=== PATIENT | female | born 1965 | race African-American/Black ===

== ENCOUNTER → 2020-06-19 17:19 | Outpatient (CLI) | payer OTHER, SELFPAY ==
--- NOTE | ~2020-06-19 | MM_ITS ---
EXAMINATION: MM screening esthela BI w ramsey HISTORY: Screening TECHNIQUE: Craniocaudal and mediolateral oblique 3-D tomosynthesis images were obtained and synthetic 2-D images were generated. CAD analysis was submitted and interpreted. COMPARISON: No prior mammogram is available for comparison at this institution. BREAST PARENCHYMAL COMPOSITION: There are biopsy changes in the left breast. FINDINGS: There is no evidence of suspicious mass, calcification, or architectural distortion to sugg est malignancy in either breast. There has been no suspicious interval change. IMPRESSION: 1. No mammographic evidence of malignancy. 2. Recommend routine screening mammography in one year. BI-RADS Category 1: Negative Reviewed, dictated and finalized at location A. IO TECHNICIAN
== END ==
PROVIDERS: Visit Provider Obstetrics & Gynecology
DX: Z12.31 Encounter for screening mammogram for malignant neoplasm of breast (principal)
CPT/HCPCS: 77063; 77067

== ENCOUNTER → 2021-11-27 15:24 | Outpatient (CLI) | payer OTHER, SELFPAY ==
--- NOTE | ~2021-11-27 | MM_ITS ---
EXAMINATION: MM screening esthela BI w ramsey HISTORY: Screening mammogram TECHNIQUE: Craniocaudal and mediolateral oblique 3-D tomosynthesis images were obtained and synthetic 2-D images were generated. CAD analysis was submitted and interpreted. COMPARISON: June 19, 2020 bilateral screening mammogram BREAST PARENCHYMAL COMPOSITION: FINDINGS: Biopsy marker on the left; history of prior benign left breast biopsy. There is no evidence of suspicious mass, calcification, or architectural distortion to suggest malignancy in either breas t. There has been no suspicious interval change. IMPRESSION: 1. No mammographic evidence of malignancy. 2. Recommend routine screening mammography in one year. BI-RADS Category 1: Negative Reviewed, dictated and finalized at location B.
== END ==
PROVIDERS: PCP Internal Medicine Geriatric Medicine; Visit Provider Internal Medicine Geriatric Medicine
DX: Z12.31 Encounter for screening mammogram for malignant neoplasm of breast (principal)
CPT/HCPCS: 77063; 77067

== ENCOUNTER → 2022-12-03 12:55 | Outpatient (CLI) | payer OTHER, SELFPAY ==
--- NOTE | ~2022-12-03 | DEXA_ITS ---
Bone Density Report Name: SANDEE PANDEY Age: 57 Sex: Female Ethnicity: Black Date of : 1965 Indication: hyperparathyroidism; hysterectomy; postmenopausal Referring Provider: LocoBarbara Study: Bone densitometry was performed. Exam Date: December 03, 2022 Accession number: [id number] Bone Density: Region BMD T-score Z-score Classification AP Spine (L1, L2, L3) 1.152 1.2 1.8 Normal Femoral Neck (Left) 0.837 -0.1 0.2 Normal Total Hip (Left) 1.041 0.8 0.8 Normal Femoral Neck (Right) 0.938 0.8 0.9 Normal Total Hip (Right) 0.901 -0.3 -0.1 Normal Total Hip Mean 0.971 0.3 0.4 Normal World Health Organization criteria for BMD impression classify patients as: Normal (T-score at or above -1.0), Osteopenia (T-score between -1.0 and -2.5), or Osteoporosis (T-score at or below -2.5). 10-year Fracture Risk: FRAX not reported because: All T-scores for Spine Total, Hip Total, Femoral Neck at or above -1.0 Clinical Information Provided by Patient: Has used the following medications: Vitamin D Has the following medical conditions: Hyperparathyroidism, Hysterectomy Patient maximum height was 65.3 Menopause Age: 38 No regular weight bearing exercise Does not regularly consume dairy products Drinks caffeinated beverages Onset of menses at age 13 Number of children 0 Impression: The patient has normal bone mass. Discussion: BONE DENSITY IS ABOVE THE MINIMUM DESIRABLE LEVEL AT ALL SKELETAL SITES TESTED. This patient?s bone mineral density is above the minimum desirable level (T-score -1.0 or better) at all sites measured. The patient should follow a healthful lifestyle (good nutrition with adequate calcium and vitamin D, and appropriate weight-bearing exercise). Follow-Up: Consider repeating this study in 5 years or sooner if there is some new clinical indication. Reported by: JAMES on 12/03/2022 1:21:00 PM. Reviewed, dictated and finalized at location AAnita HIRSCH
--- NOTE | ~2022-12-03 | MM_ITS ---
EXAMINATION: MM screening esthela BI w ramsey HISTORY: Screening mammogram TECHNIQUE: Craniocaudal and mediolateral oblique 3-D tomosynthesis images were obtained and synthetic 2-D images were generated. Bilateral rotated lateral CC views. CAD analysis was submitted and interp reted. COMPARISON: 11/27/2021, 06/19/2020 bilateral screening mammogram examinations BREAST PARENCHYMAL COMPOSITION: The breasts are almost entirely fatty. FINDINGS: There is a biopsy marker on the left; history of prior benign left breast biopsy in 2018. T here is no evidence of suspicious mass, calcification, or architectural distortion to suggest maligna ncy in either breast. There has been no suspicious interval change. IMPRESSION: 1. No mammographic evidence of malignancy. 2. Recommend routine screening mammography in one year. BI-RADS Category 1: Negative Reviewed, dictated and finalized at location A.
== END ==
PROVIDERS: PCP Internal Medicine Geriatric Medicine; Visit Provider Internal Medicine Endocrinology, Diabetes & Metabolism
DX: Z12.31 Encounter for screening mammogram for malignant neoplasm of breast (principal); Z78.0 Asymptomatic menopausal state
CPT/HCPCS: 77063; 77067; 77080

== ENCOUNTER 2023-09-07 05:48 | Day surgery (SDC) | payer OTHER, SELFPAY ==
[2023-04-19 12:55] VITALS: BMI 36.6
[2023-08-22 11:02] VITALS: BMI 36.5
[2023-09-07 06:20] VITALS: BMI 36.4
[2023-09-07 06:21] VITALS: BP 117/70; PULSE 68; RESP 18; TEMP 36.2; O2SAT 100
[2023-09-07 06:39] LABS: Glucose Point of Care 145 mg/dl (65-105)
--- NOTE | 2023-09-07 07:14 | PM.HPGS ---
History of Present Illness History of Present Illness Consent: Risks, benefits, and alternatives have been discussed and questions answered. Patient agrees to proceed with procedure. Chief complaint: Neoplasm Screening Narrative: Brook Hawkins is a 58 year old female colonoscopy. Patient's current weight appetite and bowel movements are normal. Patient denies abdominal pain. She has had no bleeding. Family history is noncontributory. Review of Systems Review of Systems: All systems reviewed & are unremarkable except as noted in HPI and below PMFSH Past Medical History Medical History (Updated 09/07/23 @ 07:16 by John Yadav MD) Diabetes Hyperlipemia Thyroid disorder Family History Family History (Updated 04/11/23 @ 15:23 by Michael Glass ETHERNET NETWORK ARCHITECT) Grandparent Cancer Mother Diabetes mellitus Social History Social History (Updated 04/11/23 @ 15:26 by Michael Glass ETHERNET NETWORK ARCHITECT) Smoking status: Never smoker Alcohol intake: never Substance use: never Substance use type: does not use Lack of Transportation: No Lack of Food: Never True Current Housing: I Have Housing Concerned About Future Housing: No Difficulty Paying Gas/Electric Bills: No Difficulty Paying for Meds: No Currently Unemployed: No Education: High School Diploma/GED Living arrangements: with family Gender identity (if verbalized by the patient): Female Spiritual care concerns: No Meds Home Medications and Allergies Home Medications Medication Instructions Recorded Confirmed Type glimepiride 2 mg tablet 2 mg PO QAM 04/11/23 09/07/23 History levothyroxine 150 mcg capsule 150 mcg PO DAILY 04/11/23 09/07/23 History metformin 500 mg tablet 500 mg PO DAILY 04/11/23 09/07/23 History rosuvastatin 40 mg tablet 40 mg PO DAILY 04/11/23 09/07/23 History exenatide microspheres 2 mg/0.85 2 mg subcut WEEKLY 08/22/23 09/07/23 History mL subcutaneous auto-injector (ByRoojoom) Allergies Allergy/AdvReac Type Severity Reaction Status Date / Time No Known Allergies Allergy Verified 09/07/23 06:16 Vital Signs Vital Signs - 24 hr 09/07/23 06:21 Temperature 97.1 F L Pulse Rate 68 Respiratory Rate 18 Blood Pressure 117/70 Pulse Oximetry 100 Oxygen Delivery Room Air Exam Narrative: Physical exam reveals patient to be alert. Vital signs stable. HEENT exam is unremarkable. Patient is anicteric. Lungs are clear to auscultation and percussion is without murmur or extra sounds. Abdomen bowel sounds are present soft nontender with no organomegaly. Digital external rectal exam is normal. Assessment and Plan Assessment and plan (1) Encounter for screening colonoscopy: Code(s): Z12.11 - Encounter for screening for malignant neoplasm of colon Status: Acute Assessment and Plan: Patient presents today for screening colonoscopy. She appears to be at average risk for colon polyps. Further recommendations may be given after endoscopy.
--- NOTE | 2023-09-07 07:16 | WPDANESEPPF ---
Anes - Initial Pre Proc Eval Procedure: Operation Date: 09/07/23 07:30 Proposed Procedures p Screening Colonoscopy - John Yadav MD Date/Time: 09/07/23 07:16 Surgeon: John Yadav MD Pre Op Diagnosis: Neoplasm Screening Patient Data Age: 58 Gender: F Height: 1.7 m Weight: 105.5 kg Last Vital Signs Temp 36.2 C L 09/07/23 06:21 Pulse 68 09/07/23 06:21 Resp 18 09/07/23 06:21 BP 117/70 09/07/23 06:21 Pulse Ox 100 09/07/23 06:21 O2 Del Method Room Air 09/07/23 06:21 Allergies Allergy/AdvReac Type Severity Reaction Status Date / Time No Known Allergies Allergy Verified 09/07/23 06:16 Home Medications Medication Instructions Recorded Confirmed Type glimepiride 2 mg tablet 2 mg PO QAM 04/11/23 09/07/23 History levothyroxine 150 mcg capsule 150 mcg PO DAILY 04/11/23 09/07/23 History metformin 500 mg tablet 500 mg PO DAILY 04/11/23 09/07/23 History rosuvastatin 40 mg tablet 40 mg PO DAILY 04/11/23 09/07/23 History exenatide microspheres 2 mg/0.85 2 mg subcut WEEKLY 08/22/23 09/07/23 History mL subcutaneous auto-injector (Bydureon BCise) Laboratory Tests 09/07/23 06:33 POC Capillary Glucose 145 H mg/dl (65-105) Patient hx anesthesia problems: none Family hx anesthesia problems: none Results Review: All pre-operative results and documents have been reviewed as part of the pre-operative evaluation. [facility] Past Medical History Medical History Diabetes Hyperlipemia Thyroid disorder Surgical History Surgical History H/O thyroidectomy H/O: hysterectomy Family History Family History Grandparent Cancer Mother Diabetes mellitus Social History Social History Smoking status: Never smoker Alcohol intake: never Substance use: never Substance use type: does not use Lack of Transportation: No Lack of Food: Never True Current Housing: I Have Housing Concerned About Future Housing: No Difficulty Paying Gas/Electric Bills: No Difficulty Paying for Meds: No Currently Unemployed: No Education: High School Diploma/GED Living arrangements: with family Gender identity (if verbalized by the patient): Female Spiritual care concerns: No Anes - Eval Final PreProcedure Day of Procedure 09/07/23 07:16 Patient weight: obese Heart: regular rate and rhythm Lungs: clear to auscultation Airway: Mallampati scale class II Neurological: alert and oriented Last oral intake: >/= 8 hours ASA classification: III Emergent: no Anesthetic plan: proceed Anesthesia type and monitoring: general GIVS and standard monitoring Results Review: All pre-operative results and documents have been reviewed as part of the pre-operative evaluation. Informed Consent: The patient's anesthetic plan and its attendant risks and benefits were discussed with the patient/family/POA. Questions were solicited and answers provided to the satisfaction of the patient/family/POA.
[2023-09-07] MEDS: LACTATED RINGERS 1,000 ML 150 ML IV CONT (07:20)
[2023-09-07 07:43] VITALS: BP 124/60; PULSE 66; RESP 16; O2SAT 100
[2023-09-07 07:53] VITALS: BP 130/70; PULSE 64; RESP 16; O2SAT 100
[2023-09-07 08:03] VITALS: BP 150/80; PULSE 68; RESP 16; O2SAT 100
--- NOTE | 2023-09-07 08:18 | WPDANESPN ---
Anes - Prog Note Post-Op Date/Time: 09/07/23 08:18 Cardiovascular status: normal Respiratory status: normal Airway patency: baseline Mental status: baseline Post-Op hydration status: normal Vital Signs: Last Vital Signs Temp 36.2 C L 09/07/23 06:21 Pulse 68 09/07/23 08:03 Resp 16 09/07/23 08:03 BP 150/80 H 09/07/23 08:03 Pulse Ox 100 09/07/23 08:03 O2 Del Method Room Air 09/07/23 08:03 Pain Score (VAS): 0/10 I/O: Intake & Output 09/06/23 09/07/23 09/07/23 23:59 07:59 15:59 Intake Total 725 Balance 725 09/07/23 06:33 POC Capillary Glucose 145 H Patient Feedback: Patient satisfied with anesthetic care.
== END 2023-09-07 08:13 | disposition home or self-care (01) ==
PROVIDERS: PCP Family Medicine; Visit Provider Internal Medicine Gastroenterology
PROC: 0DJD8ZZ Inspection of Lower Intestinal Tract, Via Natural or Artificial Opening Endoscopic (ICD-10-PCS; CPT 45378; principal; 2023-09-07 07:30)
DX: Z12.11 Encounter for screening for malignant neoplasm of colon (principal)
CPT/HCPCS: 45378

== ENCOUNTER 2023-12-01 10:44 | Outpatient (CLI) | payer OTHER, SELFPAY ==
--- NOTE | ~2023-12-01 | US_ITS ---
Renal-Bladder ultrasound Clinical History: Chronic kidney disease Technique: Real-time sonographic imaging of the kidneys and urinary bladder was performed. Findings: The right kidney measures 9.2 cm in length and the left kidney measures 11.2 cm. There is n o hydronephrosis or renal calculus identified. Renal cortical echogenicity is within normal limits. N o renal mass lesion is identified. The urinary bladder is moderately distended at the time of this exam. No intraluminal echoes are iden tified. No abnormal wall thickening is seen. Impression: Unremarkable ultrasound of the kidneys and urinary bladder. Reviewed, dictated and finalized at location . Impression: Unremarkable ultrasound of the kidneys and urinary bladder.
== END 2023-12-01 10:45 ==
PROVIDERS: PCP Internal Medicine Nephrology; Visit Provider Internal Medicine Nephrology
DX: E11.9 Type 2 diabetes mellitus without complications (principal); N18.32 Chronic kidney disease, stage 3b
CPT/HCPCS: 76775

== ENCOUNTER 2024-03-27 14:49 | Outpatient (CLI) | payer OTHER, SELFPAY ==
--- NOTE | ~2024-03-27 | MM_ITS ---
EXAMINATION: MM screening esthela BI w ramsey HISTORY: Screening TECHNIQUE: Craniocaudal and mediolateral oblique 3-D tomosynthesis images were obtained and synthetic 2-D images were generated. CAD analysis was submitted and interpreted. COMPARISON: Comparison to multiple prior studies sequentially, with oldest reviewed study dated 06/19. BREAST PARENCHYMAL COMPOSITION: Not dense: There are scattered areas of fibroglandular density. FINDINGS: There is no evidence of suspicious mass, calcification, or architectural distortion to sugg est malignancy in either breast. There has been no suspicious interval change. IMPRESSION: 1. No mammographic evidence of malignancy. 2. Recommend routine screening mammography in one year. BI-RADS Category 1: Negative Reviewed, dictated and finalized at location B. PATIONAL THERAPY ASSIST
== END 2024-03-27 14:50 | disposition home or self-care (01) ==
LOC: MICIMG 14:50
PROVIDERS: PCP Nurse Practitioner; Visit Provider Obstetrics & Gynecology Gynecology
DX: Z12.31 Encounter for screening mammogram for malignant neoplasm of breast (principal)
CPT/HCPCS: 77063; 77067

== ENCOUNTER 2024-09-03 17:30 | Emergency (ER) | payer OTHER, SELFPAY ==
[2024-09-03] VITALS (7 sets, daily range): BP systolic 170–189; BP diastolic 86–91; PULSE 63–101; RESP 10–20; TEMP 36.5–36.6; O2SAT 99–100
--- NOTE | ~2024-09-03 | XR_ITS ---
CHEST RADIOGRAPH, PA AND LATERAL CLINICAL HISTORY: chest pain . COMPARISON: None available TECHNIQUE: PA and lateral views of the chest. FINDINGS The cardiomediastinal silhouette is unremarkable. The lungs are clear. IMPRESSION: No focal infiltrate or effusion. Reviewed, dictated and finalized at location A.
--- NOTE | 2024-09-03 17:31 | ECG_ITS ---
Test Date: 2024-09-03 17:36:14 Measurements Intervals [place] Rate: 87 P: 69 KS: 180 QRS: -36 QRSD: 114 T: 124 QT: 375 QTc: 453 Interpretive Statements SINUS RHYTHM LEFT AXIS DEVIATION [QRS AXIS < -30] LEFT VENTRICULAR HYPERTROPHY AND ST-T CHANGE [VOLTAGE CRITERIA PLUS ST/T ABNORMALITY] POSSIBLE SEPTAL MYOCARDIAL INFARCTION , PROBABLY OLD [30 ms Q WAVE IN V1/V2] PROBABLE LATERAL MYOCARDIAL INFARCTION , OF INDETERMINATE AGE [35 ms Q WAVE IN I/aVL/V5/V6] No previous ECG available for comparison Electronically Signed On 09-04-2024 14:16:28 CDT by Judy Wilkins M.D.
--- OUTSIDE RECORDS SUMMARY | 2024-09-03 17:31 | XMS_ITS | Encounter Summary ---
Demographics Address [address] [place] [address] Mobile Phone Home Phone Work Phone Email Address Preferred Language Danish Marital Status Baptism Affiliation Unknown Race Black or Karlee rican Ethnic Group Not or Lati no Author Organization [facility] Address [address] [place] [address] Phone Care Team Providers Care Contract Clerk Name Role Phone Nery Miller NP Primary Care Provider + [phone] Harsh Estes NP Primary Care Provi francesca Kendall Salinas MD Primary Care Provider [phone] Harsh Estes NP Primary Care Provi francesca Ninoska Walker MD Unavailable Lia Awad DNP Unavailable [phone] Yesenia Peters NP Primary Care Provider [phone] Kendall Salinas MD Unavailable [phone] Modesto Freed MD Primary Care Provider + Encounter Details Date Type Department Care Team (Late st Contact Info) Description 05/16/2017 Orders Only [facility] ProviderErick MD [address] [place] [address] Social History Tobacco Use Types Packs/Day Years Used Date Smoking Tobacco: Never Alcohol Use Standard Drinks/Week Comments Yes 0 (1 standard drink = 0.6 oz pur e alcohol) Comments Unknown Sex and Gender Information Value Date Recorded Sex Assigned at Not on file Legal Sex Female 10:31 AM ENVIRONMENTAL PROGRAMS MANAGER Gender Identity Not on file Sexual Orientation Not on file documented as of this encounter Plan of Treatment Not on file documented as of this encounter Procedures Procedure Name Priority Date/Time Associated Diagnosis Comments DISCHARGE LABORATORY CUMULATIVE REPORT 05/16/2017 12:00 AM ENVIRONMENTAL PROGRAMS MANAGER documented in this encounter Results * DISCHARGE LABORATORY CUMULATIVE REPORT (05/16/2017 12:00 AM ENVIRONMENTAL PROGRAMS MANAGER) Narrative 05/16/2017 12:00 AM ENVIRONMENTAL PROGRAMS MANAGER Ordered by an unspecified provider. us Historical Provider LAB BLOOD ORDERABLES Hansa l Result documented in this encounter Visit Diagnoses Not on filedocumented in this encounter Additional Health Concerns Infection Onset Date Last Indicated Resolved Time COVID19 03/01/2020 03/01/2020 03/20/2020 3:06 AM ENVIRONMENTAL PROGRAMS MANAGER COVID: Recovered Comment:Added based on recent COVID infection. 03/20/2020 03/28/2020 07/18/2020 3:05 AM C DT documented as of this encounter Care Teams Contract Clerk Relationship Specialty [place] [address] [address] PCP - General 04/15/17 10/12/17 [place] [address] [address] PCP - General Family Practice 10/13/17 12/06/18 [place] [address] [address] PCP - General 12/07/18 12/11/18 [place] [address] [address] PCP - General Family Practice 12/12/18 08/28/20 [place] [address] [place] [address] PCP - General Family Medicine 08/29/20 01/17/22 [place] [address] [place] [address] PCP - General Internal Medicine 05/11/22 [place] [address] [place] [address] Consulting Physician Endocrinology Diabetes & Metabolism 03/06/20 Lia Awad DNP [address] [place] [address] Nurse Practitioner Internal Medicine 03/07/20 05/12/20 [place] [address] [place] [address] Referring Physician Obstetrics and Gynecology 12/08/20 documented as of this encounter
--- OUTSIDE RECORDS SUMMARY | 2024-09-03 17:31 | XMS_ITS | Clinical Summary ---
Demographics Address [address] [place] [address] Home Phone Mobile Phone Email Address Preferred Language Unknown Marital Status Unknown Hinduism Affiliation Unknown Race Unknown Ethnic Group Unknown Author Organization [facility] Address [address] [place] [address] Care Team Providers Care Research Specialist Name Role Phone Unavailable Primary Care Provider Unavailabl e Social History Tobacco Use Types Packs/Day Years Used Date Smoking Tobacco: Never Assessed Comments Unknown Sex and Gender Information Value Date Recorded Sex Assigned at Not on file Legal Sex Female 12:10 PM CURING PICKLING PACKER Gender Identity Not on file Sexual Orientation Not on file Plan of Treatment Health Maintenance Due Date Last Done Comments Hepatitis C Virus (HCV) Screening 1965 TdaP Immunization 1965 Pap Smear 1984 Cervical Cancer Screening (CCS) 1993 HPV/Cotest 1993 Colonoscopy 2008 Colorectal Cancer Screening 2008 Cologuard 2013 Immunochemical Fecal Occult Blood 2013 Mammogram 2013 Zoster Immunization (1 of 2) 2013 Pneumococcal Immunization (5 0+ years) (2 of 2 - PCV) 02/03/2021 02/04/2020, 01/05/2019 Influenza Immunization (#1) 01/01/202408/2019, 01/05/2019 SARS-COV-2 Immunization ( season) 2024 Respiratory Syncytial Virus (RSV) Immunization (Adult) (1 - 1-dose 75+ series) 2038 Pneumococcal Immunization Combined Discontinued 02/04/2020, 01/05/2019 Hepatitis B Immunization Aged Out No longer eligible based on patient's age to complete this topic Meningococcal Immunization (ACWY) Aged Out No longer eligible based on patient's age to complete this topic Rotavirus Immunization Aged Out No lo nger eligible based on patient's age to complete this topic
--- OUTSIDE RECORDS SUMMARY | 2024-09-03 17:32 | XMS_ITS | Clinical Summary ---
Demographics Address [address] [place] [address] Home Phone Work Phone Preferred Language [place] Citizen Marital Status Mosque Affiliation Unknown Race Black or Karlee rican Ethnic Group Not or Lati no Author Organization [facility] Address [address] [place] [address] Care Team Providers Care Hydroelectric Systems Technician Name Role Phone Radha Davila MD Primary Care Provider [phone] Source Comments [facility],non-owned Affiliates and Associated Physician Practices is amultiple site organization consisting of ambulatory clinics and hospital sitesin [place], [place], [place] and [place]. This disclosure is being madepursuant to the Care Everywhere program and may not contain all information available regarding this patient. Last updated 18.[facility] Allergies No known active allergies Medications * Be aware that medications may not be up to date on this document. Alwaysverify current medications with the patient. Insulin Detemir (LEVEMIR SC) Inject 40 Units subcutaneously once daily Active METFORMIN HCL PO Take 1,000 mg by mouth 2 times daily Active glipiZIDE (GLUCOTROL) 10 MG tablet Take 10 mg by mouth daily before breakfast Active simvastatin (ZOCOR) 20 MG tablet Take 20 mg by mouth at bedtime Active amLODIPine (NORVASC) 10 MG tablet Take 10 mg by mouth once daily Active levothyroxine (SYNTHROID) 137 MCG tablet Take 137 mcg by mouth daily before breakfast Active HYDROcodone-ac etaminophen (NORCO) 5-325 MG tablet Take 1 Tab by mouth every 4 hours as needed for Pain 30 Tab 6 Active Active Problems Problem Noted Date Diagnosed Date Abdominal pain, generalized 07/22/2010 Social History Tobacco Use Types Packs/Day Years Used Date Smoking Tobacco: Never Alcohol Use Standard Drinks/Week Comments No 0 (1 standard drink = 0.6 oz pur e alcohol) Comments No Sex and Gender Information Value Date Recorded Sex Assigned at Not on file Legal Sex Female 5:12 AM PROCESSING ENGINEER Gender Identity Not on file Sexual Orientation Not on file Last Filed Vital Signs Vital Sign Reading Time Taken Comments Blood Pressure 135/63 04/13/2016 4:15 PM PROCESSING ENGINEER Pulse 87 04/13/2016 4:20 PM PROCESSING ENGINEER Temperature 36.1 C (97 F) 04/13/2016 4:03 PM PROCESSING ENGINEER Respiratory Rate 14 04/13/2016 4:15 PM PROCESSING ENGINEER Oxygen Saturation 96% 04/13/2016 4:20 PM PROCESSING ENGINEER Inhaled Oxygen Concentration - - Weight 114.6 kg (252 lb 9.6 oz) 04/13/2016 2:49 PM PROCESSING ENGINEER Height 165.1 cm (5' 5 ) 04/13/2016 2:49 PM PROCESSING ENGINEER Body Mass Index 42.03 04/13/2016 2:49 PM PROCESSING ENGINEER Plan of Treatment Health Maintenance Due Date Last Done Comments COLOGUARD (AGES 45-75) - COLON CA SCREENING 1965 COLON MONITORING 1965 COLONOSCOPY - COLON CA SCREENING 1963 CT COLONOGRAPHY - COLON CA SCREENING 1965 Colorectal Cancer Screening 1965 FIT - COLON CA SCREENING 1963 FLEX SIG - COLON CA SCREENING 1965 PAP SMEAR 1963 HIV SCREENING 1978 HEPATITIS C SCREENING 06/22/1981 DTAP/TDAP/TD VACCINES (1 - Tdap) 1982 PNEUMOCOCCAL VACCINE 50+ (1 of 1 - PCV) 2013 ZOSTER VACCINE (1 of 2) 2013 MAMMOGRAM 12/07/2020 12/07/2018, 0811/2018, 12/07/2017, Additional history exists Respiratory Syncytial Virus (RSV) Vaccine Pt: or over 60 yrs (1 - Risk 60-74 years 1-dose series) 2023 COVID-19 VACCINE (2023- season) 2024 10/25/2020, 09/27/2020 DEPRESSION SCREENING 05/02/2024 INFLUENZA VACCINE (Season Ended) 2024 02/04/2020, 01/05/2019, 01/30/2013 HEPATITIS B VACCINE Aged Out No longe r eligible based on patient's age to complete this topic HIB VACCINE Aged Out No longer eligi ble based on patient's age to complete this topic HPV VACCINE Aged Out No longer eligi ble based on patient's age to complete this topic MENINGOCOCCAL (Group B) VACCINE SHARED DECISION-MAKING Aged Out No longer eligible based on patient's age to complete this topic MENINGOCOCCAL GROUPS A/C/Y/W VACCINE Aged Out No longer eligible based on patient's age to complete this topic Insurance * Guarantor: Brook Hawkins Account Type Relation to Patient Date of Phone Billing Address Personal/Family Self 1965 [address] [place] [address] [facility] Care Teams Hydroelectric Systems Technician Relationship Specialty Start Date End Date Radha Davila MD PCP - General Internal Medicine 04/07/16
--- OUTSIDE RECORDS SUMMARY | 2024-09-03 17:32 | XMS_ITS | Clinical Summary ---
Demographics Address [address] [place] [address] Mobile Phone Home Phone Work Phone Email Address Preferred Language Icelandic Marital Status Synagogue Affiliation Unknown Race Black or Karlee rican Ethnic Group Not or Lati no Author Organization [facility] Address [address] [place] [address] Care Team Providers Care Camouflage Assembler Name Role Phone Ninoska Walker MD Unavailable Kendall Salinas MD Unavailable [phone] Modesto Freed MD Primary Care Provider + Allergies Active Allergy Reactions Criticality Noted Date Comments Lisinopril Cough Low 12/22/2018 Medications VITAMIN D2 50,000 unit capsule once a week Every tuesday 8 Active aspirin 81 mg chewable tablet Take 1 tablet (81 mg total) by mouth daily. 30 tablet 11 8 Active allopurinoL (ZYLOPRIM) 100 mg tablet Take 100 mg by mouth daily 1 Active insulin degludec (TRESIBA) 200 unit/mL (3 mL) pen for injection Take 20 units subcutaneous daily 10 pen 3 1 Active calcitRIOL (ROCALTROL) 0.25 mcg capsule Take 1 capsule (0.25 mcg total) by mouth daily 1 Active ezetimibe (ZETIA) 10 mg tablet TAKE 1 TABLET DAILY 90 tablet 3 1 Active telmisartan-aml odipine (TWYNSTA) 80-10 mg per tablet TAKE 1 TABLET DAILY 90 tablet 3 1 Active simvastatin (ZOCOR) 40 mg tablet Take 1 tablet (40 mg total) by mouth nightly 90 tablet 3 1 Active glipiZIDE XL (GLUCOTROL XL) 10 mg 24 hr tabletIndicatio ns:type 2 diabetes mellitus Take 1 tablet (10 mg total) by mouth daily 90 tablet 1 1 Active metFORMIN XR (GLUCOPHAGE XR) 500 mg 24 hr tablet Take 2 tablets (1,000 mg total) by mouth 2 (two) times a day 360 tablet 1 1 Active SITagliptin (JANUVIA) 25 mg tabletIndicatio ns:type 2 diabetes mellitus Take 1 tablet (25 mg total) by mouth daily 90 tablet 1 1 Active levothyroxine (SYNTHROID) 150 mcg tablet Take 1 tablet (150 mcg total) by mouth daily 90 tablet 2 Active Active Problems Problem Noted Date Diagnosed Date Trigger middle finger of right hand 09/07/2022 History of chest pain 03/13/2021 Assessment & Plan (03/13/2021 4:49 PM SIMULATION SOFTWARE ENGINEER): Last week was her 2nd ER visit in the last 1 year for chest pain. I recommended a cardiac consultation for further evaluation considering her cardiac risk factors. Treadmill stress test ordered today. Discussed warning signs of when to seek emergency care for chest pain including chest pain that does not go away, severe in nature, associated dizziness, shortness of breath or fatigue. COVID-19 03/02/2020 Overview (09/20/2020): Sequelae includes fatigue 08/2020 echo normal. Hypertension associated with diabetes 11/11/2017 Assessment & Plan (03/13/2021 4:47 PM SIMULATION SOFTWARE ENGINEER): Hypertension is improving with treatment. Continue current treatment regimen. Dietary sodium restriction. Weight loss. Continue current medications. Continue telmisartan-amlodipine 80-10 mg once daily. Blood pressure will be reassessed at the next regular appointment. Assessment & Plan (12/08/2020 9:54 AM CDT): Hypertension is improving with treatment. Continue current treatment regimen. Dietary sodium restriction. Weight loss. Continue current medications. Continue telmisartan-amlodipine 80-10 mg once daily. Blood pressure will be reassessed at the next regular appointment. Assessment & Plan (09/01/2020 1:43 PM CDT): Hypertension is improving with treatment. Continue current treatment regimen. Dietary sodium restriction. Weight loss. Continue current medications. Continue telmisartan-amlodipine 80-10 mg once daily. Blood pressure will be reassessed at the next regular appointment. Hyperlipidemia associated with type 2 diabetes chris padilla 11/11/2017 Assessment & Plan (03/13/2021 4:47 PM SIMULATION SOFTWARE ENGINEER): Has been more adherent to her statin and Zetia over the last 3 months. Discussed the importance of statins in cardiovascular prophylaxis. Recommend continuing Zetia 10 mg daily and simvastatin 40 mg nightly. Lipids well controlled 11/2020 Assessment & Plan (12/08/2020 9:55 AM CDT): Has been more adherent to her statin and Zetia over the last 3 months. Discussed the importance of statins in cardiovascular prophylaxis. Recommend continuing Zetia 10 mg daily and simvastatin 40 mg nightly. Repeat lipids today. Re-evaluate in 3 months. Assessment & Plan (09/01/2020 1:42 PM CDT): Has been non compliant with her statin. Discussed the importance of statins in cardiovascular prophylaxis. Recommend continuing Zetia 10 mg daily and simvastatin 40 mg nightly. Repeat lipids today. Re-evaluate in 3 months. Post-surgical hypothyroidism 11/11/2017 Assessment & Plan (09/01/2020 1:43 PM CDT): Currently on levothyroxine 150 mcg once daily. Repeat TSH today Obesity (BMI 30-39.9) 11/11/2017 Assessment & Plan (03/13/2021 4:47 PM SIMULATION SOFTWARE ENGINEER): -Body mass index is 34.09 kg/m . Worsening.. Improving with lifestyle modifications.For a healthy weight should have BMI between 20-24.9 kg/m2. -Discussed with patient MyPlate dietary and exercise recommendations, 30 minutes moderate activity at least 5 days per week. (150 minutes total). -Discussed risk factors associated with obesity including risk for diabetes, hypertension, hyperlipidemia, and some types of cancer. Assessment & Plan (12/08/2020 9:55 AM CDT): -Body mass index is 33.34 kg/m . Unchanged. Improving with lifestyle modifications.For a healthy weight should have BMI between 20-24.9 kg/m2. -Discussed with patient [employer]ate dietary and exercise recommendations, 30 minutes moderate activity at least 5 days per week. (150 minutes total). -Discussed risk factors associated with obesity including risk for diabetes, hypertension, hyperlipidemia, and some types of cancer. Assessment & Plan (09/01/2020 1:42 PM CDT): -Body mass index is 33.91 kg/m . Improving with lifestyle modifications.For a healthy weight should have BMI between 20-24.9 kg/m2. -Discussed with patient [employer]ate dietary and exercise recommendations, 30 minutes moderate activity at least 5 days per week. (150 minutes total). -Discussed risk factors associated with obesity including risk for diabetes, hypertension, hyperlipidemia, and some types of cancer. Diabetic polyneuropathy asso ciated with type 2 diabetes mellitus 11/11/2017 Type 2 diabetes mellitus wit h diabetic polyneuropathy, with long-term current use of insulin 11/11/2017 Assessment & Plan (12/08/2020 9:54 AM CDT): Lab Results Component Value Date HGBA1C 7.1 12/08/2020 Diabetes is improving with lifestyle modifications. Continue current treatment regimen. Reminded to bring in blood sugar diary at next visit. Dietary recommendations for ADA diet. Discussed ways to avoid symptomatic hypoglycemia. Discussed foot care. ContinueTresiba 20 units once nightly. Continue metformin 1000 mg ER daily. She is going to work on healthier dietary choices and exercise regularly. Diabetes will be reassessed in 3 months. Type 2 diabetes mellitus 09/15/2013 Overview (08/07/2016): DMII WO CMP NT ST UNCNTR Assessment & Plan (03/13/2021 4:48 PM SIMULATION SOFTWARE ENGINEER): Lab Results Component Value Date HGBA1C 8.6 (H) 02/16/2021 Diabetes is worsening. Continue current treatment regimen. Reminded to bring in blood sugar diary at next visit. Dietary recommendations for ADA diet. Discussed ways to avoid symptomatic hypoglycemia. Discussed foot care. ContinueTresiba 20 units once nightly. Continue metformin 1000 mg ER daily, glipizide 10 mg daily. Did not tolerate Ozempic in the past. Will try sitagliptin 25 mg daily increase to 50 mg daily if not improved at follow up. She is going to work on healthier dietary choices and exercise regularly. Diabetes will be reassessed in 3 months. Assessment & Plan (09/01/2020 1:45 PM CDT): Lab Results Component Value Date HGBA1C 6.5 08/29/2020 Diabetes is improving with lifestyle modifications. Continue current treatment regimen. Reminded to bring in blood sugar diary at next visit. Dietary recommendations for ADA diet. Discussed ways to avoid symptomatic hypoglycemia. Discussed foot care. Freestyle Paola ordered today. Patient is taking insulin very sporadically. Recommended taking Tresiba 20 units once nightly. Stop glipizide. Continue metformin 1000 mg ER daily. Recommended sending [employer] message with blood sugar log in 1 month. Follow up in clinic in 3 months for repeat A1C Diabetes will be reassessed in 1 month. Resolved Problems Problem Noted Date Diagnosed Date Resolved Date Acute respiratory failure with hypoxia 03/02/2020 09/01/2020 Hypertension 03/02/2020 09/01/2020 Hyperlipidemia 03/02/2020 08/29/2020 Diabetes 03/02/2020 08/29/2020 Hypothyroidism 03/02/2020 08/29/2020 Hypertriglyceridemia 11/11/2017 021 Nausea 11/11/2017 08/29/2020 Hypertension 09/15/2013 11/11/2017 Overview (08/06/2016): HYPERTENSION NOS Hyperlipidemia 09/15/2013 11/11/2017 Overview (08/07/2016): HYPERLIPIDEMIA NEC/NOS Abdominal pain, generalized 07/22/2010 11/11/2017 Immunizations Immunization Administration Dates Next Due Hep A, Adult 12/20/2003 Influenza, Quadrivalent, Rec ombinant, Egg Free, Preservative Free, Intramuscular 02/04/2020,01/05/2019 Influenza, Trivalent, Split, Preservative Free, Intradermal 01/30/2013 Influenza, Unspecified 02/04/2020 Moderna SARS-CoV-2 Monovalent Vaccination (12+ Y RS) 10/25/2020,09/27/2020 Pneumococcal Conjugate, Unspecified 02/04/2020 Pneumococcal Polysaccharide PPV23 02/04/2020,09/2018 Surgical History Surgery Date Site/Laterality Comments THYROIDECTOMY BREAST BIOPSY 03/02/2017 - 03/31/2017 Left Benign findings. OOPHERECTOMY Ovarian cyst- both ovaries removed in separate years. APPENDECTOMY Approx age 4 Had single ovary removed at same time. Medical History Medical History Date Comments Hyperlipidemia Hypertension Diabetes (HCC) Thyroid goiter Thyroid was surg ically removed. Post-surgical hypothyroidism s/p thyroidectomy for goiter. Family History Medical History Relation Name Comments Diabetes type II Brother 1 Gurpreet Diabetes -T ype 2; Cause of : Diabetes -Type 2 Diabetes Brother 2 Diabetes mellit us; Kidney disease Brother 3 Renal disease ; Cervical cancer Maternal Grandmother Can er -cervical; Cause of : Cancer -cervical Ovarian cancer Maternal Grandmother Diabetes Mother Diabetes mellit us; Diabetes type II Mother Diabetes -T ype 2; Kidney disease Mother Renal disease ; Kidney failure Mother renal failure ; Diabetes Other 1 Family history of Diabetes mellitus; Hypertension Other 2 Family history of Hypertension; Hypertension Sister Hypertension; Relation Name Status Comments Brother 1 Gurpreet Brother 2 Brother 3 Maternal Grandmother (Age 65) Mother Other 1 Other 2 Sister Social History Tobacco Use Types Packs/Day Years Used Date Smoking Tobacco: Never Smokeless Tobacco: Never Alcohol Use Standard Drinks/Week Comments No 0 (1 standard drink = 0.6 oz pur e alcohol) PHQ-2 Answer Date Recorded PHQ-2 Total Score (If total score is 3 or more points, staff should administer the PHQ-9) 0 03/13/2021 Comments No Sex and Gender Information Value Date Recorded Sex Assigned at Not on file Legal Sex Female 10:31 AM SIMULATION SOFTWARE ENGINEER Gender Identity Not on file Sexual Orientation Not on file Obstetrics History Para Term AB IAB SAB Ectopic Multiple Livin g Live Births 1 Date Outcome GA Total Labor Labor/2nd/3rd Weight Sex Type Anes PTL Chica A1 A5 Name Clin Last Filed Vital Signs Vital Sign Reading Time Taken Comments Blood Pressure 122/66 03/13/2021 9:32 AM SIMULATION SOFTWARE ENGINEER Pulse 82 03/13/2021 9:32 AM SIMULATION SOFTWARE ENGINEER Temperature 36.7 C (98.1 F) 03/13/2021 9:32 AM SIMULATION SOFTWARE ENGINEER Respiratory Rate 14 03/08/2021 4:57 AM SIMULATION SOFTWARE ENGINEER Oxygen Saturation 96% 03/08/2021 4:30 AM SIMULATION SOFTWARE ENGINEER Inhaled Oxygen Concentration - - Weight 104.4 kg (230 lb 3.2 oz) 03/13/2021 9:32 AM SIMULATION SOFTWARE ENGINEER Height 175 cm (5' 8.9 ) 03/13/2021 9:32 AM SIMULATION SOFTWARE ENGINEER Body Mass Index 34.09 03/13/2021 9:32 AM SIMULATION SOFTWARE ENGINEER Plan of Treatment Health Maintenance Due Date Last Done Comments DTaP/Tdap/Td Vaccine (1 - Tdap) 1974 Hepatitis B Screening 1981 Zoster Vaccine (1 of 2) 2013 Regular Well Visit/Exam 18-64 11/11/2018 11/11/2017 Breast Cancer Screening-Mammogram 12/08/2019 12/07/2018, 12/07/2017, 03/17/2017 Albumin Creatinine Ratio, Urine 04/29/2021 , 04/12/2019 Dilated Eye Exam 06/30/2021 06/30/2020 Hemoglobin A1C 08/17/2021 02/16/2021, 08/0 12/2020, 08/29/2020, Additional history exists Foot Exam 08/29/2021 08/29/2020, 12/01, 11/11/2017 Lipid Panel 12/08/2021 12/08/2020, 08/02, 04/12/2019, Additional history exists eGFR 03/08/2022 03/08/2021, 01/30, 12/08/2020, Additional history exists Depression Screening 03/13/2022 03/13/2021, 12/08/2020, 08/29/2020, Additional history exists Colon Cancer Screening-Colonoscopy 07/01/2023 06/30/2013 Covid-19 Vaccine (3 - 2023-2 5 season) 2024 10/25/2020, 09/27/2020 Influenza Vaccine (#1) 2024 0, 02/04/2020, 01/05/2019, Additional history exists Pneumococcal vaccine <65 (3 of 3 - PCV20 or PCV21) 02/03/2025 02/04/2020, 02/04/2020, 01/05/2019 Colon Cancer Screening-CT Colonography Discontinued 06/30/2013 Colon Cancer Screening-DNA Stool Discontinued 07/01/19 14 Colon Cancer Screening-FIT Discontinued 06/30/2013 Colon Cancer Screening-Sigmoidoscopy Discontinued 06/30/2013 Cervical Cancer Screening Discontinued 08/30/2017 Hepatitis C Screening Completed 08/29/2020 Procedures Procedure Name Priority Date/Time Associated Diagnosis Comments EGFR STAT 03/08/2021 1:49 AM CDT HEMOGLOBIN A1C Routine 02/16/2021 9:51 AM CDT LIPID PANEL Routine 12/08/2020 9:09 AM CDT Hyperlipidemia associated with type 2 diabetes mellitus (HCC) HEPATITIS C ANTIBODY Routine 08/29/2020 11:52 AM CDT Need for hepatitis C screening test HM DIABETES EYE EXAM Routine 06/30/2020 ALBUMIN CREATININE RATIO, URINE Routine 04/29/2020 8:37 AM SIMULATION SOFTWARE ENGINEER SCREENING MAMMOGRAM BILATERAL W MARCO A Schedule Routine, Read Routine (OP Routine) 12/07/2018 9:34 AM CDT Screening breast examination PAP SMEAR WITH HPV Routine 08/30/2017 COLONOSCOPY Routine 06/30/2013 from Last 3 Months or Most Recently Relevant to Health Maintenance Results * eGFR (03/08/2021 1:49 AM CDT) eGFR 46 mL/min/1.7 3 m2 [facility] Comment: Interpretive Data Reference Interval Normal >/= 90 mL/min/1.73m2 Mildly decreased* 60 - 89 mL/min/1.73m2 Mildly to moderately decreased 45 - 59 mL/min/1.73m2 Moderately to severely decreased 30 - 44 mL/min/1.73m2 Severely decreased 15 - 29 mL/min/1.73m2 Kidney Failure < 15 mL/min/1.73m2 *Relative to young adult level Estimated glomerular filtration rate is determined by the CKD-EPI equation recommended by the National Kidney Foundation (KDIGO 2012 Clinical Practice Guideline for the Evaluation and Management of Chronic Kidney Disease. Kidney Intnl Suppl May 2012;3:1). The CKD-EPI equation should not be used for patients with unstable renal function and has not been validated in children and those over 70. Current interpretive data was last reviewed 2020 Blood 03/08/2021 1:49 AM CDT 03/08/2021 2:36 AM SIMULATION SOFTWARE ENGINEER Luiz Cabrera MD LAB BLOOD ORDERABLES Final Result Performing Organization Address City/[facility] Co de Phone Number [facility] [address] [place] [address] * (ABNORMAL) Hemoglobin A1c (02/16/2021 9:51 AM CDT) Hgb A1C 8.6(H) 4.0 - 5.6 % [facility] Estimated Average Glucose 200 mg/dL [facility] Comment: The ADA recommends reporting an estimated Average Glucose (eAG) with all Hemoglobin A1c results using the equation derived from a study of 507 normal and diabetic adults. Minority populations were underrepresented and children were not included. (Diabetes Care 31:8714-8631, 2008). The eAG is not equivalent to a fasting glucose. Blood 02/16/2021 9:51 AM CDT 02/16/2021 12:14 PM CDT Antonino Mandujano MD LAB BLOOD ORDERABLES Final Res ult Performing Organization Address City/[facility]/ZIP Co de Phone Number [facility] [address] Department of [employer] [place], [place] [id number] * Lipid panel (12/08/2020 9:09 AM CDT) Cholesterol 171 30 - 199 mg/dL ARIA Comment: Interpretive Data Ages < or = 19 years Acceptable: <170 mg/dL Borderline high: 170-199 mg/dL High: >or= 200 mg/dL Ages > or = 20 years Desirable: <200 mg/dL Borderline high: 200-239 mg/dL High: >or= 240 mg/dL Literature References: 1. Expert Panel on Integrated Guidelines for Cardiovascular Health and Risk Reduction in Children and Adolescents. Pediatrics 2011;128:S213 2. NCEP Expert Panel. Circulation 2004;110:227 Current Interpretive Data was last revised on 2017. Triglycerides 144 <=149 mg/dL [facility] Comment: Interpretive Data Ages < or = 9 years Acceptable: <75 mg/dL Borderline high: 75-99 mg/dL High: >or= 100 mg/dL Ages 10 to 20 years Acceptable: <90 mg/dL Borderline high: 90-129 mg/dL High: >or= 130 mg/dL Ages > or = 20 years Desirable: <150 mg/dL Borderline high: 150-199 mg/dL High: 200-499 mg/dL Very high: >or= 499 mg/dL Literature References: 1. Expert Panel on Integrated Guidelines for Cardiovascular Health and Risk Reduction in Children and Adolescents. Pediatrics 2011;128:S213 2. NCEP Expert Panel. Circulation 2004;110:227 Current Interpretive Data was last revised on 2017. HDL 51 >=40 mg/dL [facility] Comment: Interpretive Data Ages < or = 19 years Acceptable: >45 mg/dL Borderline low: 40-45 mg/dL Low: <40 mg/dL Ages > or = 20 years Desirable: >or= 60 mg/dL Low: <40 mg/dL Literature References: 1. Expert Panel on Integrated Guidelines for Cardiovascular Health and Risk Reduction in Children and Adolescents. Pediatrics 2011;128:S213 2. NCEP Expert Panel. Circulation 2004;110:227 Current Interpretive Data was last revised on 2017. LDL, calculated 91 <=129 mg/dL [facility] Comment: Interpretive Data Ages < or = 19 years Acceptable: <110 mg/dL Borderline high: 110-129 mg/dL High: >or= 130 mg/dL Ages > or = 20 years Optimal: <100 mg/dL Near optimal: 100-129 mg/dL Borderline high: 130-159 mg/dL High: >160 mg/dL Literature References: 1. Expert Panel on Integrated Guidelines for Cardiovascular Health and Risk Reduction in Children and Adolescents. Pediatrics 2011;128:S213 2. NCEP Expert Panel. Circulation 2004;110:227 Current Interpretive Data was last revised on 2017. Non-HDL Cholesterol 120 mg/dL [facility] Comment: Interpretive Data Ages < or = 19 years Acceptable: <120 mg/dL Borderline high: 120-144 mg/dL High: >145 mg/dL Ages > or = 20 years When triglycerides are >200 mg/dL, Non-HDL cholesterol is a secondary target of therapy with treatment goals that are 30 mg/dL greater than the LDL cholesterol target. Literature References: 1. Expert Panel on Integrated Guidelines for Cardiovascular Health and Risk Reduction in Children and Adolescents. Pediatrics 2011;128:S213 2. NCEP Expert Panel. Circulation 2004;110:227 Current Interpretive Data was last revised on 2017. Chol/HDL ratio 3 [facility] Blood specimen (specimen) 12/08/2020 9:09 AM CDT 12/08/2020 12:11 PM CDT us Yesenia Peters NP LAB BLOOD ORDERABLES Final R esult [facility] [address] [place] [address] * Hepatitis C antibody (08/29/2020 11:52 AM CDT) Hep C Ab Nonreactive Nonreactive [facility] Comment: Interpretive Data Nonreactive: Antibodies to HCV not detected. Does NOT exclude the possibility of recent exposure to HCV. Equivocal: Equivocal for HCV antibodies. Supplemental molecular testing will be automatically performed to determine infection status in accordance with current CDC screening recommendations. Reactive: Positive for HCV antibodies. This may represent current or past HCV infection. Supplemental molecular testing will be automatically performed to determine current infection status in accordance with current CDC screening recommendations. Interpretive data was last revised on 2019. Blood specimen (specimen) 08/29/2020 11:52 AM CDT 08/29/2020 5:05 PM CDT Yesenia Peters COMMUNITY HEALTH EDUCATION COORDINATOR LAB MICROBIOLOGY - GENERAL O RDERABLES Final Result Performing Organization Address [facility] Co de Phone Number [facility] [address] [place] [address] * DIABETES EYE EXAM (06/30/2020) SCRIBED DIABETIC DILATED EYE EXAM Normal Comment:pt reported Historical Provider MD HEALTH MAINTENANCE Final Result * Albumin Creatinine Ratio, Urine (04/29/2020 8:37 AM SIMULATION SOFTWARE ENGINEER) Albumin Ur <12.0 mg/L [facility] Comment: Interpretive Data No reference range established. Current interpretive data was last revised 2018. Creatinine Ur 99.3 mg/dL [facility] Comment: Interpretive Data No reference range established. Current interpretive data was last revised 2018. Albumin Creatinine Ratio, Ur <12 1 - 29 mg/g [facility] Urine 04/29/2020 8:37 AM SIMULATION SOFTWARE ENGINEER 04/29/2020 8:38 AM SIMULATION SOFTWARE ENGINEER Antonino Mandujano MD LAB URINE ORDERABLES Final Res ult Performing Organization Address [facility] de Phone Number [facility] [address] [place] [address] * Screening Mammogram Bilateral W Marco A (12/07/2018 9:34 AM CDT) Anatomical Region Laterality Modality Breast Bilateral Mammography Narrative 12/08/2018 4:17 PM CDT Screening Mammogram Bilateral W Marco A: 12/07/18 Clinical: Screening breast examination. Prior Study Comparisons: Comparison was made to the prior available relevant studies at the time of interpretation. Findings: Bilateral No significant masses, malignant type calcifications, skin thickening, nipple retraction, or significant lymphadenopathy is noted in either breast. The CAD review showed no significant findings. The breasts are almost entirely fatty. The patient will be notified of results by letter. Impression: BI-RADS ATLAS category (overall): 2 Benign There is no mammographic evidence of malignancy. Routine Screening Mammogram in 1 Yr is recommended for bilateral Overall Assessment: 2 - Benign Harsh Estes COMMUNITY HEALTH EDUCATION COORDINATOR IMG MAMMO PROCEDURE S Final Result * PAP SMEAR WITH HPV (08/30/2017) Pap smear Normal Historical Provider HEALTH MAINTENANCE Final Result * COLONOSCOPY (06/30/2013) Colonoscopy Normal Historical Provider HEALTH MAINTENANCE Final Result from Last 3 Months or Most Recently Relevant to Health Maintenance Insurance 05/[address] CHOICE PLUS 05/[address] CHO[address] PLUS * Guarantor: Brook Hawkins Account Type Relation to Patient Date of Phone Billing Address Personal/Family Self 1965 [address] [place] [address] [facility] CHO[facility] PL[facility] Advance Directives For more information, please contact: [phone] * Full Code (Latest Code Status on File) Date Activated Date Inactivated Comments 03/02/2020 9:45 AM 03/06/2020 9:00 PM Care Teams Camouflage Assembler Relationship Specialty [place] [address] [facility] [address] [place] [address] PCP - General Internal Medicine 05/11/22 [place] [address] [address] [facility] [address], [place] [address] Consulting Physician Endocrinology Diabetes & Metabolism 03/06/20 [place] [address] [address] Referring Physician Obstetrics and Gynecology 12/08/20
--- OUTSIDE RECORDS SUMMARY | 2024-09-03 17:32 | XMS_ITS | Referral Summary ---
Demographics Address [address] [place] [address] Mobile Phone Home Phone Work Phone Email Address Preferred Language Sami Marital Status Gnosticist Affiliation Unknown Race Black or Karlee rican Ethnic Group Not or Lati no Author Organization [facility] Address [address] [place] [address] Care Team Providers Care Integrated Logistics Operations Manager Name Role Phone Ninoska Walker MD Unavailable Kendall Salinas MD Unavailable Modesto Freed MD Primary Care Provider + [...] 03/13/2021 Assessment & Plan (03/13/2021 4:49 PM RAW STOCK MACHINE FEEDER): Last week was her 2nd ER visit [...] 11/11/2017 Assessment & Plan (03/13/2021 4:47 PM RAW STOCK MACHINE FEEDER): Hypertension is improving with treatment. Continue current [...] 11/11/2017 Assessment & Plan (03/13/2021 4:47 PM RAW STOCK MACHINE FEEDER): Has been more adherent to her statin [...] 11/11/2017 Assessment & Plan (03/13/2021 4:47 PM RAW STOCK MACHINE FEEDER): -Body mass index is 34.09 kg/m . [...] UNCNTR Assessment & Plan (03/13/2021 4:48 PM RAW STOCK MACHINE FEEDER): Lab Results Component Value Date HGBA1C 8.6 [...] metformin 1000 mg ER daily. Recommended sending [employer] message with blood sugar log in 1 [...] Conjugate, Unspecified 02/04/2020 Pneumococcal Polysaccharide PPV23 02/04/2020,09/2018 Social History Tobacco Use Types Packs/Day Years [...] on file Legal Sex Female 10:31 AM RAW STOCK MACHINE FEEDER Gender Identity Not on file Sexual Orientation Not on file Last Filed Vital Signs Vital Sign Reading Time Taken Comments Blood Pressure 122/66 03/13/2021 9:32 AM RAW STOCK MACHINE FEEDER Pulse 82 03/13/2021 9:32 AM RAW STOCK MACHINE FEEDER Temperature 36.7 C (98.1 F) 03/13/2021 9:32 AM RAW STOCK MACHINE FEEDER Respiratory Rate 14 03/08/2021 4:57 AM RAW STOCK MACHINE FEEDER Oxygen Saturation 96% 03/08/2021 4:30 AM RAW STOCK MACHINE FEEDER Inhaled Oxygen Concentration - - Weight 104.4 kg (230 lb 3.2 oz) 03/13/2021 9:32 AM RAW STOCK MACHINE FEEDER Height 175 cm (5' 8.9 ) 03/13/2021 9:32 AM RAW STOCK MACHINE FEEDER Body Mass Index 34.09 03/13/2021 9:32 AM RAW STOCK MACHINE FEEDER Plan of Treatment Not on file Procedures Procedure Name Priority Date/Time Associated Diagnosis Comments EGFR STAT 03/08/2021 1:49 AM CDT HEMOGLOBIN A1C Routine 02/16/2021 9:51 AM CDT LIPID PANEL Routine 12/08/2020 9:09 AM CDT Hyperlipidemia associated with type 2 diabetes mellitus (HCC) HEPATITIS C ANTIBODY Routine 08/29/2020 11:52 AM CDT Need for hepatitis C screening test DIABETES EYE EXAM Routine 06/30/2020 ALBUMIN CREATININE RATIO, URINE Routine 04/29/2020 8:37 AM RAW STOCK MACHINE FEEDER SCREENING MAMMOGRAM BILATERAL W MARCO A Schedule [...] 03/08/2021 1:49 AM CDT 03/08/2021 2:36 AM RAW STOCK MACHINE FEEDER us Luiz Cabrera MD LAB BLOOD ORDERABLES Final Result [facility] [id number] Department [place] [address] * (ABNORMAL) Hemoglobin A1c (02/16/2021 [...] and children were not included. (Diabetes Care 31:[id number], 2008). The eAG is not equivalent to a fasting glucose. Blood 02/16/2021 9:51 AM CDT 02/16/2021 12:14 PM CDT us Antonino Mandujano MD LAB BLOOD ORDERABLES Final Res ult [facility]A [facility]GO [id number] Department [place] [address] * Lipid panel (12/08/2020 9:09 AM CDT) [...] on 2017. Triglycerides 144 <=149 mg/dL ARIA Comment: Interpretive Data Ages < [...] on 2017. HDL 51 >=40 mg/dL [facility]GO Comment: Interpretive Data Ages [...] 2017. LDL, calculated 91 <=129 mg/dL [facility] Comment: Interpretive Data Ages [...] revised on 2017. Chol/HDL ratio 3 [facility]A Blood specimen (specimen) 12/08/2020 9:09 AM CDT 12/08/2020 12:11 PM CDT Yesenia Peters [facility] LAB BLOOD ORDERABLES Final R esult Performing Organization Address City/[facility]/ZIP Co de Phone Number SHANTEGISELA HUGO [id number] [place] [address] * Hepatitis C antibody (08/29/2020 11:52 AM CDT) Hep C Ab Nonreactive Nonreactive ARIA Comment: Interpretive Data Nonreactive: Antibodies to HCV [...] CDT 08/29/2020 5:05 PM CDT Yesenia Peters [facility] LAB MICROBIOLOGY - GENERAL O RDERABLES Final Result Performing Organization Address City/[facility]/ZIP Co de Phone Number [facility]GO [id number] Department [place] [address] * DIABETES EYE EXAM (06/30/2020) SCRIBED DIABETIC DILATED EYE EXAM Normal Comment:pt reported Historical Provider HEALTH MAINTENANCE Final Result * Albumin Creatinine Ratio, Urine (04/29/2020 8:37 AM RAW STOCK MACHINE FEEDER) Albumin Ur <12.0 mg/L ARIA Comment: Interpretive Data No reference range established. Current interpretive data was last revised 2018. Creatinine Ur 99.3 mg/dL ARIA Comment: Interpretive Data No reference range established. Current interpretive data was last revised 2018. Albumin Creatinine Ratio, Ur <12 1 - 29 mg/g ARIA Urine 04/29/2020 8:37 AM RAW STOCK MACHINE FEEDER 04/29/2020 8:38 AM RAW STOCK MACHINE FEEDER Antonino Mandujano MD LAB URINE ORDERABLES Final Res ult ARIA [facility]GO [address] Department [place] [address] * Screening Mammogram Bilateral W Marco A [...] Overall Assessment: 2 - Benign Harsh Estes [facility] IMG MAMMO PROCEDURE S Final Result * PAP SMEAR WITH HPV (08/30/2017) Pap smear Normal Historical Provider HEALTH MAINTENANCE Final Result * COLONOSCOPY (06/30/2013) Colonoscopy Normal Historical Provider HEALTH MAINTENANCE Final Result from Last 3 Months or Most Recently Relevant to Health Maintenance Insurance [facility] CHO[facility] PLUS [facility]/PPO Address: [address] [place] [address] 05/[address] CHOICE [facility]US [facility] HMO/PPO Address: [address] [place] [address] 05/[address] [facility] [facility]/PPO Address: [address] [place] [address] Advance Directives For more information, please contact: [phone] * Full Code (Latest Code Status on File) Date Activated Date Inactivated Comments 03/02/2020 9:45 AM 03/06/2020 9:00 PM Care Teams Integrated Logistics Operations Manager Relationship Specialty [place] [id number] [address] PCP - General Internal Medicine 05/11/22 [place] [id number] [facility] [address] [place] [address] Consulting Physician Endocrinology Diabetes & Metabolism 03/06/20 [place] [id number] [address] [facility] [address] [place] [address] Referring Physician Obstetrics and Gynecology 12/08/20
[2024-09-03 17:47] LABS: Basophils Absolute Auto 0.1 K/mm3 (0.0-0.1); Basophils Percent Auto 0.9 % (0.2-1.2); Eosinophils Absolute Auto 0.2 K/mm3 (0-0.3); Eosinophils Percent Auto 2.1 % (0-4.4); Hematocrit 38.4 % (37.0-47.0); Hemoglobin 12.2 g/dL (12.0-15.0); Immature Granulocyte Absolute 0.02 K/mm3 (0.00-0.031); Immature Granulocyte Percent A 0.2 % (0-0.5); Lymphocytes Absolute Auto 2.42 K/mm3 (0.9-3.2); Lymphocytes Percent Auto 29.7 % (18.3-44.2); Mean Corpuscular HGB Conc 31.8 g/dl (32-36); Mean Corpuscular Hemoglobin 27.7 pg (26-34); Mean Corpuscular Volume 87.1 fl (80-100); Monocytes Absolute Auto 0.5 K/mm3 (0.1-0.6); Monocytes Percent Auto 6.6 % (2.6-8.5); Neutrophils Absolute Auto 4.9 K/mm3 (1.3-6.7); Neutrophils Percent Auto 60.5 % (45.5-73.1); Platelet Count Result 255 k/mm3 (150-375); Red Blood Count 4.41 M/mm3 (4.2-5.4); Red Cell Distribution Width 13.3 % (11.5-14.5); White Blood Count 8.2 K/mm3 (4.5-10.0)
[2024-09-03 17:59] LABS: Alanine Aminotransferase 49 U/L (6-35); Alkaline Phosphatase 100 U/L (38-126); Anion Gap 9 mmol/L (4-12); Aspartate Amino Transferase 52 U/L (14-36); Bilirubin,Total 0.8 mg/dL (0.2-1.3); Blood Urea Nitrogen 34 mg/dL (7-17); Calcium 9.5 mg/dL (8.4-10.2); Carbon Dioxide 25 mmol/L (22-30); Chloride 104 mmol/L (98-107); Estimated CRCL calculation 41 ml/min; Estimated Glomerular Filt Rate 33; Glucose 290 mg/dL (65-110); Lipase 250 U/L (23-300); Potassium 4.8 mmol/L (3.4-5.0); Sodium 138 mmol/L (137-145)
[2024-09-03 18:08] LABS: Troponin I 0.031 ng/mL (0.000-0.034)
--- NOTE | 2024-09-03 18:09 | ED_ITS ---
HPI - Chest Pain General Chief Complaint: Chest Pain <Daniella Dacosta PA-C - Last Filed: 09/05/24 09:59> Stated Complaint: chest pain <Daniella Dacosta PA-C - Last Filed: 09/05/24 09:59> Time Seen by Provider: 09/03/24 18:09 <Daniella Dacosta PA-C - Last Filed: 09/05/24 09:59> Focused HPI: This is a 59 year old female that presents to the ER for pressure in the left arm and chest. Ongoing intermittently over the last couple of days. Reports no history of CAD. Reports family history of CAD. She is not a smoker. Reports history of diabetes mellitus and hypertension GENERAL: Well-appearing, well-nourished, and in no acute distress. HEAD: Normocephalic, atraumatic. CHEST: Clear to auscultation. ?No respiratory distress. HEART: Regular rate and rhythm.? NEURO: ?Alert and oriented x3. Patient screened in triage and initial orders placed.? ?Additional care and disposition to be based upon?diagnostic testing and treatment. <Daniella Dacosta PA-C - Last Filed: 09/05/24 09:59> History of Present Illness HPI narrative: Agree with HPI. Central chest pain and left arm pain described as pressure. Last for 2 minutes at a time. Associated with shortness of breath and nausea. Occasional radiation to back. No history of heart disease. <Axel Moe MD - Last Filed: 09/03/24 22:03> Related Data Home Medications: Home Medications ?Medication ?Instructions ?Recorded ?Confirmed ?Last Taken ?Type metformin 500 mg tablet 500 mg PO DAILY 04/11/23 06/05/24 09/05/23 History rosuvastatin 40 mg tablet 40 mg PO DAILY 04/11/23 06/05/24 09/05/23 History telmisartan 80 mg-amlodipine 10 mg 1 tablet PO DAILY 11/08/23 06/05/24 Unknown History tablet <Daniella Dacosta PA-C - Last Filed: 09/05/24 09:59> Allergies/Adverse Reactions: Allergies Allergy/AdvReac Type Severity Reaction Status Date / Time lisinopril AdvReac Mild Cough Verified 09/03/24 17:30 <Daniella Dacosta PA-C - Last Filed: 09/05/24 09:59> Review of Systems 2 Review of Systems: All systems reviewed & are unremarkable except as noted in HPI and below <Axle Moe MD - Last Filed: 09/03/24 22:03> Constitutional: Constitutional: Reports no additional constitutional complaints <Axel Moe MD - Last Filed: 09/03/24 22:03> ENT: Reports system reviewed and no additional complaints, except as documented <Axel Moe MD - Last Filed: 09/03/24 22:03> Cardiovascular: Cardiovascular: Reports no additional cardiovascular complaints <Axel Moe MD - Last Filed: 09/03/24 22:03> Respiratory: Respiratory: Reports no additional respiratory complaints < Axel Moe MD - Last Filed: 09/03/24 22:03> Musculoskeletal: Musculoskeletal: Reports no additional musculoskeletal complaints <Axel Moe MD - Last Filed: 09/03/24 22:03> [facility] Past Medical History Medical History: Medical History BMI 38.0-38.9,adult Hyperlipemia Thyroid disorder Diabetes <Daniella Dacosta PA-C - Last Filed: 09/05/24 09:59> Surgical History Surgical History: Surgical History H/O thyroidectomy H/O: hysterectomy <Daniella Dacosta PA-C - Last Filed: 09/05/24 09:59> Family History Family History: Family History Grandparent Cancer Mother Diabetes mellitus Father , GSW No problems noted. Sibling , complications of DM. Dialysis complication Sibling Acute myocardial infarction Tobacco abuse Hypertension <Daniella Dacosta PA-C - Last Filed: 09/05/24 09:59> Social History Social History: Social History (Updated 06/05/24 @ 16:24 by Kaylyn Meza MA) Smoking status: Never smoker Second hand tobacco smoke exposure: No Alcohol intake: never Substance use: never Substance use type: does not use Do You Feel Safe in your Home?: Yes Lack of Transportation: No Lack of Food: Never True Current Housing: I Have Housing Concerned About Future Housing: No Difficulty Paying Gas/Electric Bills: No Difficulty Paying for Meds: No Currently Unemployed: No Education: High School Diploma/GED Living arrangements: alone Occupation/Education: occupation 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 HEAD: Normocephalic, atraumatic. ENT: Mucous membranes moist. CHEST: Clear to auscultation. No respiratory distress. HEART: Regular rate and rhythm. Normal peripheral pulses. ABDOMEN: Soft, nontender, nondistended. EXTREMITIES: Normal range of motion. No edema. SKIN: Warm, dry, no rash. NEURO: Alert and oriented x3. PSYCH: Normal mood and affect. <Axel Moe MD - Last Filed: 09/03/24 22:03> Course Course Emergency Course: Patient does not wish to stay in the hospital. Discussed risk factors and heart score. Troponin negative x2. Spoke with patient's PCP to ensure close follow-up and outpatient stress testing. Discussed return precautions. <Axel Moe MD - Last Filed: 09/03/24 22:03> Vital Signs Vital signs: Vital Signs Temperature 97.9 F 09/03/24 17:31 Pulse Rate 93 09/03/24 17:31 Respiratory Rate 18 09/03/24 17:31 Blood Pressure 189/91 H 09/03/24 17:31 Pulse Oximetry 100 09/03/24 17:31 Oxygen Delivery Room Air 09/03/24 17:31 Temperature 97.7 F 09/03/24 22:12 Pulse Rate 101 H 09/03/24 22:12 Respiratory Rate 20 09/03/24 22:12 Blood Pressure 175/86 H 09/03/24 22:12 Pulse Oximetry 99 09/03/24 22:12 Oxygen Delivery Room Air 09/03/24 17:31 <Daniella Dacosta PA-C - Last Filed: 09/05/24 09:59> Vital Signs Temperature 97.9 F 09/03/24 17:31 Pulse Rate 93 09/03/24 17:31 Respiratory Rate 18 09/03/24 17:31 Blood Pressure 189/91 H 09/03/24 17:31 Pulse Oximetry 100 09/03/24 17:31 Oxygen Delivery Room Air 09/03/24 17:31 Temperature 97.7 F 09/03/24 22:12 Pulse Rate 101 H 09/03/24 22:12 Respiratory Rate 20 09/03/24 22:12 Blood Pressure 175/86 H 09/03/24 22:12 Pulse Oximetry 99 09/03/24 22:12 Oxygen Delivery Room Air 09/03/24 17:31 <Axel Moe MD - Last Filed: 09/03/24 22:03> MDM - Chest Pain Lab Data Result diagrams: 09/03/24 17:41 09/03/24 17:41 <Daniella Dacosta PA-C - Last Filed: 09/05/24 09:59> Labs: Lab Results 09/03/24 09/03/24 Range/Units 17:41 21:00 WBC 8.2 (4.5-10.0) K/mm3 RBC 4.41 (4.2-5.4) M/mm3 Hgb 12.2 (12.0-15.0) g/dL Hct 38.4 (37.0-47.0) % MCV 87.1 (80-100) fl MCH 27.7 (26-34) pg MCHC 31.8 L (32-36) g/dl RDW 13.3 (11.5-14.5) % Plt Count 255 (150-375) k/mm3 MPV 11.0 H (7.4-10.4) fl Immature Gran % (Auto) 0.2 (0-0.5) % Neut % (Auto) 60.5 (45.5-73.1) % Lymph % (Auto) 29.7 (18.3-44.2) % [place] % (Auto) 6.6 (2.6-8.5) % Eos % (Auto) 2.1 (0-4.4) % Baso % (Auto) 0.9 (0.2-1.2) % Lymph # (Auto) 2.42 (0.9-3.2) K/mm3 [place] # (Auto) 0.5 (0.1-0.6) K/mm3 Eos # (Auto) 0.2 (0-0.3) K/mm3 Baso # (Auto) 0.1 (0.0-0.1) K/mm3 Abs Immat Gran (auto) 0.02 (0.00-0.031) K/mm3 Absolute Neuts (auto) 4.9 (1.3-6.7) K/mm3 Absolute Nucleated RBC 0.000 (0.0-0.012) K/mm3 Nucleated RBC % 0.0 (0.0-0.2) % PT 14.2 (11.1-14.7) Seconds INR 1.0 APTT 27.9 (22.3-36.8) Seconds Sodium 138 (137-145) mmol/L Potassium 4.8 (3.4-5.0) mmol/L Chloride 104 (98-107) mmol/L Carbon Dioxide 25 (22-30) mmol/L Anion Gap 9 (4-12) mmol/L BUN 34 H (7-17) mg/dL Creatinine 1.57 H (0.7-1.0) mg/dL Estim Creat Clear Calc 41 ml/min Estimated GFR 33 L (59 - ) Glucose 290 H (65-110) mg/dL Calcium 9.5 (8.4-10.2) mg/dL Total Bilirubin 0.8 (0.2-1.3) mg/dL AST 52 H (14-36) U/L ALT 49 H (6-35) U/L Alkaline Phosphatase 100 (38-126) U/L Troponin I 0.031 0.033 (0.000-0.034) ng/mL Total Protein 9.0 H (6.3-8.2) g/dL Albumin 5.0 (3.5-5.1) g/dL Lipase 250 (23-300) U/L <Daniella Dacosta PA-C - Last Filed: 09/05/24 09:59> Lab Results 09/03/24 09/03/24 Range/Units 17:41 21:00 WBC 8.2 (4.5-10.0) K/mm3 RBC 4.41 (4.2-5.4) M/mm3 Hgb 12.2 (12.0-15.0) g/dL Hct 38.4 (37.0-47.0) % MCV 87.1 (80-100) fl MCH 27.7 (26-34) pg MCHC 31.8 L (32-36) g/dl RDW 13.3 (11.5-14.5) % Plt Count 255 (150-375) k/mm3 MPV 11.0 H (7.4-10.4) fl Immature Gran % (Auto) 0.2 (0-0.5) % Neut % (Auto) 60.5 (45.5-73.1) % Lymph % (Auto) 29.7 (18.3-44.2) % [place] % (Auto) 6.6 (2.6-8.5) % Eos % (Auto) 2.1 (0-4.4) % Baso % (Auto) 0.9 (0.2-1.2) % Lymph # (Auto) 2.42 (0.9-3.2) K/mm3 [place] # (Auto) 0.5 (0.1-0.6) K/mm3 Eos # (Auto) 0.2 (0-0.3) K/mm3 Baso # (Auto) 0.1 (0.0-0.1) K/mm3 Abs Immat Gran (auto) 0.02 (0.00-0.031) K/mm3 Absolute Neuts (auto) 4.9 (1.3-6.7) K/mm3 Absolute Nucleated RBC 0.000 (0.0-0.012) K/mm3 Nucleated RBC % 0.0 (0.0-0.2) % PT 14.2 (11.1-14.7) Seconds INR 1.0 APTT 27.9 (22.3-36.8) Seconds Sodium 138 (137-145) mmol/L Potassium 4.8 (3.4-5.0) mmol/L Chloride 104 (98-107) mmol/L Carbon Dioxide 25 (22-30) mmol/L Anion Gap 9 (4-12) mmol/L BUN 34 H (7-17) mg/dL Creatinine 1.57 H (0.7-1.0) mg/dL Estim Creat Clear Calc 41 ml/min Estimated GFR 33 L (59 - ) Glucose 290 H (65-110) mg/dL Calcium 9.5 (8.4-10.2) mg/dL Total Bilirubin 0.8 (0.2-1.3) mg/dL AST 52 H (14-36) U/L ALT 49 H (6-35) U/L Alkaline Phosphatase 100 (38-126) U/L Troponin I 0.031 0.033 (0.000-0.034) ng/mL Total Protein 9.0 H (6.3-8.2) g/dL Albumin 5.0 (3.5-5.1) g/dL Lipase 250 (23-300) U/L <Axel Moe MD - Last Filed: 09/03/24 22:03> Imaging Data Radiologist's impression: ITS Impressions Chest X-Ray 09/03/24 19:09 IMPRESSION: No focal infiltrate or effusion. <Axel Moe MD - Last Filed: 09/03/24 22:03> ECG Data EKG #1: ECG completion date: 09/03/24 <Axel Moe MD - Last Filed: 09/03/24 22:03> ECG completion time: 20:52 <Axel Moe MD - Last Filed: 09/03/24 22:03> EKG Interpretation: normal rate (69), sinus rhythm, non-specific ST changes, normal QRS, normal QT, NL axis and other (LVH) <Axel Moe MD - Last Filed: 09/03/24 22:03> Critical Care Time Critical Care Time Critical Care Time: No <Dainella Dacosta PA-C - Last Filed: 09/05/24 09:59> Discharge Plan Discharge Clinical Impression: Chest pain Qualifiers: Chest pain type: unspecified Qualified Code(s): R07.9 - Chest pain, unspecified <Daniella Dacosta PA-C - Last Filed: 09/05/24 09:59> Patient Disposition: Home <ERIKA Cr Last Filed: 09/05/24 09:59> Condition: Stable <Daniella Dacosta PA-C - Last Filed: 09/05/24 09:59> Instructions: Chest Pain (ED) <Daniella Dacosta PA-C - Last Filed: 09/05/24 09:59> Additional Instructions: Please return to the emergency department if you develop severe and persistent chest pain, difficulty breathing, dizziness, leg swelling or if you are coughing up blood as these can be signs of a medical emergency. Please call your doctor for a follow up appointment to determine the need for further testing. <Daniella Dacosta PA-C - Last Filed: 09/05/24 09:59> Patient Language: Dutch <Daniella Dacosta PA-C - Last Filed: 09/05/24 09:59> Prescriptions: No Action telmisartan-amlodipine 80-10 mg tablet 1 tablet PO DAILY metformin 500 mg tablet 500 mg PO DAILY rosuvastatin 40 mg tablet 40 mg PO DAILY Bydureon BCise 2 mg/0.85 mL auto-injector 2 mg SUBCUT WEEKLY Qty: 3.4 3RF (DME) FreeStyle Paola 3 Temple Misc See Rx Instructions .Route Qty: 1 0RF Rx Instructions: Check blood glucose 3x daiy (DME) FreeStyle [place] 3 Sensor Device See Rx Instructions .Route Qty: 2 12RF Rx Instructions: Check blood glucose 3xdaily glimepiride 2 mg tablet 2 mg PO QAM Qty: 30 6RF Rx Instructions: administer with breakfast levothyroxine 150 mcg tablet 150 mcg PO DAILY Qty: 90 1RF Jardiance 10 mg tablet 10 mg PO DAILY Qty: 90 0RF <Daniella Dacosta PA-C - Last Filed: 09/05/24 09:59> Follow-up/Referrals: Danielle Reddy MD [Primary Care Provider] - 1 Week <Daniella Dacosta PA-C - Last Filed: 09/05/24 09:59> Quality HEART score for chest pain patients History: slightly suspicious <Axel Moe MD - Last Filed: 09/03/24 22:03> ECG: non specific repolarization disturbance/LBTB/PM <Axel Moe MD - Last Filed: 09/03/24 22:03> Age: > 45 and < 65 years <Axel Moe MD - Last Filed: 09/03/24 22:03> Risk factors: > or = to 3 risk factors of atherosclerotic disease <Axel Moe MD - Last Filed: 09/03/24 22:03> Troponin: < or = to 1x normal limit <Axel Moe MD - Last Filed: 09/03/24 22:03> Heart score: 4 <Daniella Dacosta PA-C - Last Filed: 09/05/24 09:59> 4 <Axel Moe MD - Last Filed: 09/03/24 22:03>
[2024-09-03 18:10] LABS: Prothrombin Time 14.2 Seconds (11.1-14.7)
[2024-09-03 18:11] LABS: Partial Thromboplastin Time 27.9 Seconds (22.3-36.8)
--- NOTE | 2024-09-03 20:37 | ECG_ITS ---
Test Date: 2024-09-03 20:52:00 Measurements Intervals [place] Rate: 69 P: 63 HI: 173 QRS: -27 QRSD: 110 T: 135 QT: 394 QTc: 425 Interpretive Statements SINUS RHYTHM LEFT VENTRICULAR HYPERTROPHY AND ST-T CHANGE [VOLTAGE CRITERIA PLUS ST/T ABNORMALITY] POSSIBLE SEPTAL MYOCARDIAL INFARCTION , PROBABLY OLD [30 ms Q WAVE IN V1/V2] POSSIBLE LATERAL MYOCARDIAL INFARCTION , OF INDETERMINATE AGE [30 ms Q WAVE IN I/aVL/V5/V6] Compared to ECG 09/03/2024 17:36:14 NO SIGNIFICANT CHANGES Electronically Signed On 09-04-2024 14:19:33 CDT by Judy Wilkins M.D.
[2024-09-03 21:27] LABS: Troponin I 0.033 ng/mL (0.000-0.034)
--- OUTSIDE RECORDS SUMMARY | 2024-09-03 21:38 | XMS_ITS | Clinical Summary ---
Demographics Address [address] [place] [address] Mobile Phone Home Phone Work Phone Email Address Preferred Language Welsh Marital Status Presybeterian Affiliation Unknown Race Black or Karlee rican Ethnic Group Not or Lati no Author Organization [facility] Address [address] [place] [address] Care Team Providers Care Telecommunications Technician Name Role Phone Ninoska Walker MD Unavailable Kendall Salinas MD Unavailable [phone] Modesto Freed MD Primary Care Provider + [...] 03/13/2021 Assessment & Plan (03/13/2021 4:49 PM WHARF TENDER HEAD): Last week was her 2nd ER visit [...] 11/11/2017 Assessment & Plan (03/13/2021 4:47 PM WHARF TENDER HEAD): Hypertension is improving with treatment. Continue current [...] 11/11/2017 Assessment & Plan (03/13/2021 4:47 PM WHARF TENDER HEAD): Has been more adherent to her statin [...] 11/11/2017 Assessment & Plan (03/13/2021 4:47 PM WHARF TENDER HEAD): -Body mass index is 34.09 kg/m . [...] UNCNTR Assessment & Plan (03/13/2021 4:48 PM WHARF TENDER HEAD): Lab Results Component Value Date HGBA1C 8.6 [...] metformin 1000 mg ER daily. Recommended sending Revolut message with blood sugar log in 1 [...] on file Legal Sex Female 10:31 AM WHARF TENDER HEAD Gender Identity Not on file Sexual Orientation Not on file Obstetrics History Para Term AB IAB SAB Ectopic Multiple Livin g Live Births 1 Date Outcome GA Total Labor Labor/2nd/3rd Weight Sex Type Anes PTL Chica A1 A5 Name Clin Last Filed Vital Signs Vital Sign Reading Time Taken Comments Blood Pressure 122/66 03/13/2021 9:32 AM WHARF TENDER HEAD Pulse 82 03/13/2021 9:32 AM WHARF TENDER HEAD Temperature 36.7 C (98.1 F) 03/13/2021 9:32 AM WHARF TENDER HEAD Respiratory Rate 14 03/08/2021 4:57 AM WHARF TENDER HEAD Oxygen Saturation 96% 03/08/2021 4:30 AM WHARF TENDER HEAD Inhaled Oxygen Concentration - - Weight 104.4 kg (230 lb 3.2 oz) 03/13/2021 9:32 AM WHARF TENDER HEAD Height 175 cm (5' 8.9 ) 03/13/2021 9:32 AM WHARF TENDER HEAD Body Mass Index 34.09 03/13/2021 9:32 AM WHARF TENDER HEAD Plan of Treatment Health Maintenance Due Date [...] CREATININE RATIO, URINE Routine 04/29/2020 8:37 AM WHARF TENDER HEAD SCREENING MAMMOGRAM BILATERAL W MARCO A Schedule [...] 03/08/2021 1:49 AM CDT 03/08/2021 2:36 AM WHARF TENDER HEAD Luiz Cabrera MD LAB BLOOD ORDERABLES Final Result Performing Organization Address City/[facility] Co de Phone Number ARIA HUGO [address] [place] [address] * (ABNORMAL) Hemoglobin A1c (02/16/2021 [...] and children were not included. (Diabetes Care 31:[id number], 2008). The eAG is not equivalent to a fasting glucose. Blood 02/16/2021 9:51 AM CDT 02/16/2021 12:14 PM CDT Antonino Mandujano MD LAB BLOOD ORDERABLES Final Res ult Performing Organization Address City/[facility]/ZIP Co de Phone Number ARIA HUGO [address] Department of [employer] [place], [place] [id number] * Lipid panel (12/08/2020 9:09 AM CDT) [...] BLOOD ORDERABLES Final R esult ARIA HUGO [address] [address] Department [place] [address] * Hepatitis C antibody (08/29/2020 11:52 AM [...] CDT 08/29/2020 5:05 PM CDT Yesenia Peters HANDBAG OPERATOR LAB MICROBIOLOGY - GENERAL O RDERABLES Final Result Performing Organization Address [facility] Co de Phone Number ARIA HUGO [address] [address] Department [place] [address] * DIABETES EYE EXAM (06/30/2020) SCRIBED DIABETIC DILATED EYE EXAM Normal Comment:pt reported Historical Provider MD HEALTH MAINTENANCE Final Result * Albumin Creatinine Ratio, Urine (04/29/2020 8:37 AM WHARF TENDER HEAD) Albumin Ur <12.0 mg/L [facility] Comment: Interpretive Data No reference range established. Current interpretive data was last revised 2018. Creatinine Ur 99.3 mg/dL [facility] Comment: Interpretive Data No reference range established. Current interpretive data was last revised 2018. Albumin Creatinine Ratio, Ur <12 1 - 29 mg/g [facility] Urine 04/29/2020 8:37 AM WHARF TENDER HEAD 04/29/2020 8:38 AM WHARF TENDER HEAD Antonino Mandujano MD LAB URINE ORDERABLES Final Res ult Performing Organization Address [facility] de Phone Number ARIA HUGO [address] [address] Department [place] [address] * Screening Mammogram Bilateral W Marco A [...] Overall Assessment: 2 - Benign Harsh Estes HANDBAG OPERATOR IMG MAMMO PROCEDURE S Final Result * PAP SMEAR WITH HPV (08/30/2017) Pap smear Normal Historical Provider HEALTH MAINTENANCE Final Result * COLONOSCOPY (06/30/2013) Colonoscopy Normal Historical Provider HEALTH MAINTENANCE Final Result from Last 3 Months or Most Recently Relevant to Health Maintenance Insurance 05/[address] CHOICE PLUS [facility] H[facility]/PPO Address: [place] [address] 05/[address] CHOICE PLUS [facility] H[facility]/PPO Address: [place] [address] * Guarantor: Brook Hawkins Account Type Relation to Patient Date of Phone Billing Address Personal/Family Self 1965 [address] [place] [address] [facility] CHOICE PLUS [facility] H[facility]/PPO Address: [place] [address] Advance Directives For more information, please contact: [phone] * Full Code (Latest Code Status on File) Date Activated Date Inactivated Comments 03/02/2020 9:45 AM 03/06/2020 9:00 PM Care Teams Telecommunications Technician Relationship Specialty [place] [address] [address] [facility] [address] [place] [address] PCP - General Internal Medicine 05/11/22 [place] [address] [address] [facility] [address] [address] Consulting Physician Endocrinology Diabetes & Metabolism 03/06/20 [place] [address] [address] Referring Physician Obstetrics and Gynecology 12/08/20
--- OUTSIDE RECORDS SUMMARY | 2024-09-03 21:38 | XMS_ITS | Clinical Summary ---
Demographics Address [address] [place] [address] Home Phone Mobile Phone Email Address Preferred Language Unknown Marital Status Unknown Rastafarian Affiliation Unknown Race Unknown Ethnic Group Unknown Author Organization [facility] Address [address] [place] [address] Care Team Providers Care Waste Examiner Name Role Phone Unavailable Primary Care Provider Unavailabl e Social History Tobacco Use Types Packs/Day Years Used Date Smoking Tobacco: Never Assessed Comments Unknown Sex and Gender Information Value Date Recorded Sex Assigned at Not on file Legal Sex Female 12:10 PM FIREARMS EXPERT Gender Identity Not on file Sexual Orientation [...]
--- OUTSIDE RECORDS SUMMARY | 2024-09-03 21:38 | XMS_ITS | Referral Summary ---
Demographics Address [address] [place] [address] Mobile Phone Home Phone Work Phone Email Address Preferred Language Czech Marital Status Mu-Ism Affiliation Unknown Race Black or Karlee rican Ethnic Group Not or Lati no Author Organization [facility] Address [address] [place] [address] Care Team Providers Care Customer Service Professional Name Role Phone Ninoska Walker MD Unavailable Kendall Salinas MD Unavailable [phone] Modesto Freed MD Primary Care Provider + [...] 03/13/2021 Assessment & Plan (03/13/2021 4:49 PM EVENT EXECUTIVE): Last week was her 2nd ER visit [...] 11/11/2017 Assessment & Plan (03/13/2021 4:47 PM EVENT EXECUTIVE): Hypertension is improving with treatment. Continue current [...] 11/11/2017 Assessment & Plan (03/13/2021 4:47 PM EVENT EXECUTIVE): Has been more adherent to her statin [...] 11/11/2017 Assessment & Plan (03/13/2021 4:47 PM EVENT EXECUTIVE): -Body mass index is 34.09 kg/m . [...] UNCNTR Assessment & Plan (03/13/2021 4:48 PM EVENT EXECUTIVE): Lab Results Component Value Date HGBA1C 8.6 [...] metformin 1000 mg ER daily. Recommended sending ikaSystems message with blood sugar log in 1 [...] on file Legal Sex Female 10:31 AM EVENT EXECUTIVE Gender Identity Not on file Sexual Orientation Not on file Last Filed Vital Signs Vital Sign Reading Time Taken Comments Blood Pressure 122/66 03/13/2021 9:32 AM EVENT EXECUTIVE Pulse 82 03/13/2021 9:32 AM EVENT EXECUTIVE Temperature 36.7 C (98.1 F) 03/13/2021 9:32 AM EVENT EXECUTIVE Respiratory Rate 14 03/08/2021 4:57 AM EVENT EXECUTIVE Oxygen Saturation 96% 03/08/2021 4:30 AM EVENT EXECUTIVE Inhaled Oxygen Concentration - - Weight 104.4 kg (230 lb 3.2 oz) 03/13/2021 9:32 AM EVENT EXECUTIVE Height 175 cm (5' 8.9 ) 03/13/2021 9:32 AM EVENT EXECUTIVE Body Mass Index 34.09 03/13/2021 9:32 AM EVENT EXECUTIVE Plan of Treatment Not on file Procedures [...] CREATININE RATIO, URINE Routine 04/29/2020 8:37 AM EVENT EXECUTIVE SCREENING MAMMOGRAM BILATERAL W MARCO A Schedule [...] 03/08/2021 1:49 AM CDT 03/08/2021 2:36 AM EVENT EXECUTIVE us Luiz Cabrera MD LAB BLOOD ORDERABLES Final Result ARIA HUGO [address] [place] [address] * (ABNORMAL) Hemoglobin A1c (02/16/2021 [...] and children were not included. (Diabetes Care 31:5237-2714, 2008). The eAG is not equivalent to a fasting glucose. Blood 02/16/2021 9:51 AM CDT 02/16/2021 12:14 PM CDT us Antonino Mandujano MD LAB BLOOD ORDERABLES Final Res ult ARIA HUGO [address] [place] [address] * Lipid panel (12/08/2020 9:09 AM CDT) [...] CDT 12/08/2020 12:11 PM CDT Yesenia Peters POULTRY SERVICE TECHNICIAN LAB BLOOD ORDERABLES Final R esult Performing Organization Address City/[facility]/ZIP Co de Phone Number SHANTEGISELA HUGO [address] [address] [place] [address] * Hepatitis C antibody (08/29/2020 11:52 AM [...] CDT 08/29/2020 5:05 PM CDT Yesenia Peters POULTRY SERVICE TECHNICIAN LAB MICROBIOLOGY - GENERAL O RDERABLES Final Result Performing Organization Address City/[facility]/ZIP Co de Phone Number ARIA HUGO [address] [address] [place] [address] * DIABETES EYE EXAM (06/30/2020) SCRIBED DIABETIC DILATED EYE EXAM Normal Comment:pt reported Historical Provider HEALTH MAINTENANCE Final Result * Albumin Creatinine Ratio, Urine (04/29/2020 8:37 AM EVENT EXECUTIVE) Albumin Ur <12.0 mg/L ARI[facility] Comment: Interpretive Data No reference range established. Current interpretive data was last revised 2018. Creatinine Ur 99.3 mg/dL [facility] Comment: Interpretive Data No reference range established. Current interpretive data was last revised 2018. Albumin Creatinine Ratio, Ur <12 1 - 29 mg/g [facility] Urine 04/29/2020 8:37 AM EVENT EXECUTIVE 04/29/2020 8:38 AM EVENT EXECUTIVE Antonino Mandujano MD LAB URINE ORDERABLES Final Res ult ARIA HUGO [address] [place] [address] * Screening Mammogram Bilateral W Marco A [...] Overall Assessment: 2 - Benign Harsh Estes POULTRY SERVICE TECHNICIAN IMG MAMMO PROCEDURE S Final Result * PAP SMEAR WITH HPV (08/30/2017) Pap smear Normal Historical Provider HEALTH MAINTENANCE Final Result * COLONOSCOPY (06/30/2013) Colonoscopy Normal Historical Provider HEALTH MAINTENANCE Final Result from Last 3 Months or Most Recently Relevant to Health Maintenance Insurance [facility] CHOICE PLUS 05/[address] CHOICE PLUS 05/[address] CHOICE PLUS Advance Directives For more information, please contact: [phone] * Full Code (Latest Code Status on File) Date Activated Date Inactivated Comments 03/02/2020 9:45 AM 03/06/2020 9:00 PM Care Teams Customer Service Professional Relationship Specialty Start [place] [address] [address] PCP - General Internal Medicine 05/11/22 [place] [address] [address] [facility] [address] [place] [address] Consulting Physician Endocrinology Diabetes & Metabolism 03/06/20 [place] [address] [address] [facility] [address] [place] [address] Referring Physician Obstetrics and Gynecology 12/08/20
--- OUTSIDE RECORDS SUMMARY | 2024-09-03 21:38 | XMS_ITS | Encounter Summary ---
Demographics Address [address] [place] [address] Mobile Phone Home Phone Work Phone Email Address Preferred Language Kazakh Marital Status Sabianist Affiliation Unknown Race Black or Karlee rican Ethnic Group Not or Lati no Author Organization [facility] Address [address] [place] [address] Phone Care Team Providers Care Optical Fabrication Technician Name Role Phone Nery Miller NP Primary Care Provider + [phone] Harsh Estes NP Primary Care Provi francesca Kendall Salinas MD Primary Care Provider [phone] Harsh Estes NP Primary Care Provi francesca Ninoska Walker MD Unavailable Lia Awad DNP Unavailable [phone] Yesenia Peters NP Primary Care Provider [phone] Kendall Salinas MD Unavailable [phone] Modesto Freed MD Primary Care Provider + Encounter Details Date Type Department Care Team (Late st Contact Info) Description 05/16/2017 Orders Only [facility] ProviderErick MD [address] [place] [address] Social History Tobacco Use Types Packs/Day Years Used Date Smoking Tobacco: Never Alcohol Use Standard Drinks/Week Comments Yes 0 (1 standard drink = 0.6 oz pur e alcohol) Comments Unknown Sex and Gender Information Value Date Recorded Sex Assigned at Not on file Legal Sex Female 10:31 AM TRACK REPAIR WORKER Gender Identity Not on file Sexual Orientation Not on file documented as of this encounter Plan of Treatment Not on file documented as of this encounter Procedures Procedure Name Priority Date/Time Associated Diagnosis Comments DISCHARGE LABORATORY CUMULATIVE REPORT 05/16/2017 12:00 AM TRACK REPAIR WORKER documented in this encounter Results * DISCHARGE LABORATORY CUMULATIVE REPORT (05/16/2017 12:00 AM TRACK REPAIR WORKER) Narrative 05/16/2017 12:00 AM TRACK REPAIR WORKER Ordered by an unspecified provider. us Historical Provider LAB BLOOD ORDERABLES Hansa l Result documented in this encounter Visit Diagnoses Not on filedocumented in this encounter Additional Health Concerns Infection Onset Date Last Indicated Resolved Time COVID19 03/01/2020 03/01/2020 03/20/2020 3:06 AM TRACK REPAIR WORKER COVID: Recovered Comment:Added based on recent COVID infection. 03/20/2020 03/28/2020 07/18/2020 3:05 AM C DT documented as of this encounter Care Teams Optical Fabrication Technician Relationship Specialty [place] [address] [address] PCP - General 04/15/17 10/12/17 [place] [address] [address] PCP - General Family Practice 10/13/17 12/06/18 [place] [address] [address] PCP - General 12/07/18 12/11/18 [place] [address] [address] PCP - General Family Practice 12/12/18 08/28/20 [place] [address] [address] [place] [address] PCP - General Family Medicine 08/29/20 01/17/22 [place] [address] [address] [place] [address] PCP - General Internal Medicine 05/11/22 [place] [address] [address] [place] [address] Consulting Physician Endocrinology Diabetes & Metabolism 03/06/20 Lia Awad DNP [address] [address] [place] [address] Nurse Practitioner Internal Medicine 03/07/20 05/12/20 [place] [address] [address] [place] [address] Referring Physician Obstetrics and Gynecology 12/08/20 documented as of this encounter
--- OUTSIDE RECORDS SUMMARY | 2024-09-03 21:38 | XMS_ITS | Clinical Summary ---
Demographics Address [address] [place] [address] Home Phone Work Phone Preferred Language [place] Marital Status Confucianism Affiliation Unknown Race Black or Karlee rican Ethnic Group Not or Lati no Author Organization [facility] Address [address] [place] [address] Care Team Providers Care Credit Charge Authorizer Name Role Phone Radha Davila MD Primary Care Provider [phone] Source Comments 8aweek [facility],non-owned Affiliates and Associated Physician Practices is amultiple site organization consisting of ambulatory clinics and hospital sitesin [place], [place], [place] and [place]. This disclosure is being madepursuant to the Care Everywhere program and may not contain all information available regarding this patient. Last updated 01/20/18.[employer]aweek [facility] Allergies No known active allergies Medications * [...] on file Legal Sex Female 5:12 AM VACUUM WORKER Gender Identity Not on file Sexual Orientation Not on file Last Filed Vital Signs Vital Sign Reading Time Taken Comments Blood Pressure 135/63 04/13/2016 4:15 PM VACUUM WORKER Pulse 87 04/13/2016 4:20 PM VACUUM WORKER Temperature 36.1 C (97 F) 04/13/2016 4:03 PM VACUUM WORKER Respiratory Rate 14 04/13/2016 4:15 PM VACUUM WORKER Oxygen Saturation 96% 04/13/2016 4:20 PM VACUUM WORKER Inhaled Oxygen Concentration - - Weight 114.6 kg (252 lb 9.6 oz) 04/13/2016 2:49 PM VACUUM WORKER Height 165.1 cm (5' 5 ) 04/13/2016 2:49 PM VACUUM WORKER Body Mass Index 42.03 04/13/2016 2:49 PM VACUUM WORKER Plan of Treatment Health Maintenance Due Date [...] of Phone Billing Address Personal/Family Self 1965 [address] [place] [address] [facility] Care Teams Credit Charge Authorizer Relationship Specialty Start Date End Date Radha Davila MD PCP - General Internal Medicine 04/07/16
== END 2024-09-03 22:13 | disposition home or self-care (01) ==
PROVIDERS: Emergency Provider Emergency Medicine; PCP Family Medicine
DX: R07.9 Chest pain, unspecified (principal); I10 Essential (primary) hypertension; E11.9 Type 2 diabetes mellitus without complications
CPT/HCPCS: 36415; 71046; 80053; 83690; 84484; 85025; 85610; 85730; 93005; 99284

== ENCOUNTER 2024-09-26 08:17 | Outpatient (CLI) | payer OTHER, SELFPAY ==
--- NOTE | ~2024-09-26 | NM_ITS ---
EXAMINATION: NM stress w perf spect multi DATE: 09/26/2024 13:00 INDICATION: Chest pain TECHNIQUE: Rest images were obtained following intravenous administration of 10.3 mCi Tc99m tetrofosm in (Myoview). The patient performed an exercise activity. At peak exercise, 32.7 mCi Tc99m tetrofosmi n (Myoview) was administered intravenously, and stress images were obtained. Data was reconstructed i nto short axis and horizontal and vertical long axis SPECT images. Gated SPECT images were also obtai faye. COMPARISON: None. FINDINGS: There is breast attenuation artifact along the anterior half of the heart extending minimally into th e basilar inferolateral segment on both the rest and more prominently on the post stress images obtai faye in the supine position. This normalizes on the post stress imaging obtained in the prone position with no evident reversible or fixed perfusion abnormality to suggest ischemia or infarction. There is normal left ventricular chamber size, wall motion and ejection fraction. Left ventricular ejectio n fraction measures >70%. IMPRESSION: 1. Normal myocardial perfusion at rest and during stress. 2. Left ventricular ejection fraction measuring >70%. Reviewed, dictated and finalized at location A.
--- OUTSIDE RECORDS SUMMARY | 2024-09-26 08:23 | XMS_ITS | Encounter Summary ---
Demographics Address [address] [place] [address] Mobile Phone Home Phone Work Phone Email Address Preferred Language Spanish Marital Status Restorationist Affiliation Unknown Race Black or Karlee rican Ethnic Group Not or Lati no Author Organization [facility] Address [address] [place] [address] Phone Care Team Providers Care Electrical Control Assembler Name Role Phone Nery Miller NP Primary Care Provider + [phone] Harsh Estes NP Primary Care Provi francesca Kendall Salinas MD Primary Care Provider [phone] Harsh Estes NP Primary Care Provi francesca Ninoska Walker MD Unavailable Lia Awad DNP Unavailable [phone] Yesenia Peters NP Primary Care Provider [phone] Kendall Salinas MD Unavailable [phone] Modesto Freed MD Primary Care Provider + Encounter Details Date Type Department Care Team (Late st Contact Info) Description 05/16/2017 Orders Only [facility] ProviderErick MD [address] [place] [address] Social History Tobacco Use Types Packs/Day Years Used Date Smoking Tobacco: Never Alcohol Use Standard Drinks/Week Comments Yes 0 (1 standard drink = 0.6 oz pur e alcohol) Comments Unknown Sex and Gender Information Value Date Recorded Sex Assigned at Not on file Legal Sex Female 10:31 AM CORPORATE HUMAN RESOURCES MANAGER Gender Identity Not on file Sexual Orientation Not on file documented as of this encounter Plan of Treatment Not on file documented as of this encounter Procedures Procedure Name Priority Date/Time Associated Diagnosis Comments DISCHARGE LABORATORY CUMULATIVE REPORT 05/16/2017 12:00 AM CORPORATE HUMAN RESOURCES MANAGER documented in this encounter Results * DISCHARGE LABORATORY CUMULATIVE REPORT (05/16/2017 12:00 AM CORPORATE HUMAN RESOURCES MANAGER) Narrative 05/16/2017 12:00 AM CORPORATE HUMAN RESOURCES MANAGER Ordered by an unspecified provider. us Historical Provider LAB BLOOD ORDERABLES Hansa l Result documented in this encounter Visit Diagnoses Not on filedocumented in this encounter Additional Health Concerns Infection Onset Date Last Indicated Resolved Time COVID19 03/01/2020 03/01/2020 03/20/2020 3:06 AM CORPORATE HUMAN RESOURCES MANAGER COVID: Recovered Comment:Added based on recent COVID infection. 03/20/2020 03/28/2020 07/18/2020 3:05 AM C DT documented as of this encounter Care Teams Electrical Control Assembler Relationship Specialty [place] [address] [address] PCP - General 04/15/17 10/12/17 [place] [address] [address] PCP - General Family Practice 10/13/17 12/06/18 [place] [address] [address] PCP - General 12/07/18 12/11/18 [place] [address] [address] PCP - General Family Practice 12/12/18 08/28/20 [place] [address] [address] [place] [address] PCP - General Family Medicine 08/29/20 01/17/22 [place] [address] [address] [place] [address] PCP - General Internal Medicine 05/11/22 [place] [address] [address] [place] [address] Consulting Physician Endocrinology Diabetes & Metabolism 03/06/20 [place] [address] [address] [place] [address] Nurse Practitioner Internal Medicine 03/07/20 05/12/20 [place] [address] [address] [place] [address] Referring Physician Obstetrics and Gynecology 12/08/20 documented as of this encounter
--- OUTSIDE RECORDS SUMMARY | 2024-09-26 08:23 | XMS_ITS | Clinical Summary ---
Demographics Address [address] [place] [address] Mobile Phone Home Phone Work Phone Email Address Preferred Language Lao Marital Status Adventism Affiliation Unknown Race Black or Karlee rican Ethnic Group Not or Lati no Author Organization [facility] Address [address] [place] [address] Care Team Providers Care Disaster Recovery Manager Name Role Phone Ninoska Walker MD Unavailable Kendall Salinas MD Unavailable [phone] Modesto Freed MD Primary Care Provider + [...] 03/13/2021 Assessment & Plan (03/13/2021 4:49 PM FABRICATION DEPARTMENT SUPERVISOR): Last week was her 2nd ER visit [...] 11/11/2017 Assessment & Plan (03/13/2021 4:47 PM FABRICATION DEPARTMENT SUPERVISOR): Hypertension is improving with treatment. Continue current [...] 11/11/2017 Assessment & Plan (03/13/2021 4:47 PM FABRICATION DEPARTMENT SUPERVISOR): Has been more adherent to her statin [...] 11/11/2017 Assessment & Plan (03/13/2021 4:47 PM FABRICATION DEPARTMENT SUPERVISOR): -Body mass index is 34.09 kg/m . [...] UNCNTR Assessment & Plan (03/13/2021 4:48 PM FABRICATION DEPARTMENT SUPERVISOR): Lab Results Component Value Date HGBA1C 8.6 [...] metformin 1000 mg ER daily. Recommended sending GL 2ours message with blood sugar log in 1 [...] on file Legal Sex Female 10:31 AM FABRICATION DEPARTMENT SUPERVISOR Gender Identity Not on file Sexual Orientation Not on file Obstetrics History Para Term AB IAB SAB Ectopic Multiple Livin g Live Births 1 Date Outcome GA Total Labor Labor/2nd/3rd Weight Sex Type Anes PTL Chica A1 A5 Name Clin Last Filed Vital Signs Vital Sign Reading Time Taken Comments Blood Pressure 122/66 03/13/2021 9:32 AM FABRICATION DEPARTMENT SUPERVISOR Pulse 82 03/13/2021 9:32 AM FABRICATION DEPARTMENT SUPERVISOR Temperature 36.7 C (98.1 F) 03/13/2021 9:32 AM FABRICATION DEPARTMENT SUPERVISOR Respiratory Rate 14 03/08/2021 4:57 AM FABRICATION DEPARTMENT SUPERVISOR Oxygen Saturation 96% 03/08/2021 4:30 AM FABRICATION DEPARTMENT SUPERVISOR Inhaled Oxygen Concentration - - Weight 104.4 kg (230 lb 3.2 oz) 03/13/2021 9:32 AM FABRICATION DEPARTMENT SUPERVISOR Height 175 cm (5' 8.9) 03/13/2021 9:32 AM FABRICATION DEPARTMENT SUPERVISOR Body Mass Index 34.09 03/13/2021 9:32 AM FABRICATION DEPARTMENT SUPERVISOR Plan of Treatment Health Maintenance Due Date [...] 5 season) 2024 10/25/2020, 09/27/2020 Influenza Vaccine (Season Ended) 2024 02/04/2020, 02/04/2020, 01/05/2019, Additional history exists Pneumococcal vaccine [...] CREATININE RATIO, URINE Routine 04/29/2020 8:37 AM FABRICATION DEPARTMENT SUPERVISOR SCREENING MAMMOGRAM BILATERAL W MARCO A Schedule [...] 03/08/2021 1:49 AM CDT 03/08/2021 2:36 AM FABRICATION DEPARTMENT SUPERVISOR Luiz Cabrera MD LAB BLOOD ORDERABLES Final Result Performing Organization Address City/[facility] Co de Phone Number ARIA HUGO [address] [place] [address] * (ABNORMAL) Hemoglobin A1c (02/16/2021 [...] and children were not included. (Diabetes Care 31:1234-0399, 2008). The eAG is not equivalent to a fasting glucose. Blood 02/16/2021 9:51 AM CDT 02/16/2021 12:14 PM CDT Antonino Mandujano MD LAB BLOOD ORDERABLES Final Res ult Performing Organization Address City/[facility]/ZIP Co de Phone Number ARIA HUGO [address] [address] Department of [employer] [place], [place] [id number] * Lipid panel (12/08/2020 9:09 AM CDT) [...] BLOOD ORDERABLES Final R esult ARIA HUGO [address] [address] Department [place] [address] * Hepatitis C antibody (08/29/2020 11:52 AM [...] CDT 08/29/2020 5:05 PM CDT Yesenia Peters MACHINE ASSISTANT LAB MICROBIOLOGY - GENERAL O RDERABLES Final Result Performing Organization Address [facility] Co de Phone Number ARIA HUGO [address] [address] Department [place] [address] * DIABETES EYE EXAM (06/30/2020) SCRIBED DIABETIC DILATED EYE EXAM Normal Comment:pt reported Historical Provider MD HEALTH MAINTENANCE Final Result * Albumin Creatinine Ratio, Urine (04/29/2020 8:37 AM FABRICATION DEPARTMENT SUPERVISOR) Albumin Ur <12.0 mg/L ARIA Comment: Interpretive Data No reference range established. Current interpretive data was last revised 2018. Creatinine Ur 99.3 mg/dL [facility] Comment: Interpretive Data No reference range established. Current interpretive data was last revised 2018. Albumin Creatinine Ratio, Ur <12 1 - 29 mg/g [facility] Urine 04/29/2020 8:37 AM FABRICATION DEPARTMENT SUPERVISOR 04/29/2020 8:38 AM FABRICATION DEPARTMENT SUPERVISOR Antonino Mandujano MD LAB URINE ORDERABLES Final Res ult Performing Organization Address [facility] de Phone Number ARIA HUGO [address] [address] Department [place] [address] * Screening Mammogram Bilateral W Marco A [...] Overall Assessment: 2 - Benign Harsh Estes MACHINE ASSISTANT IMG MAMMO PROCEDURE S Final Result * PAP SMEAR WITH HPV (08/30/2017) Pap smear Normal Historical Provider HEALTH MAINTENANCE Final Result * COLONOSCOPY (06/30/2013) Colonoscopy Normal Historical Provider HEALTH MAINTENANCE Final Result from Last 3 Months or Most Recently Relevant to Health Maintenance Insurance 05/[address] CHOICE PLUS 05/[address] CHOICE PLUS * Guarantor: Brook Hawkins Account Type Relation to Patient Date of Phone Billing Address Personal/Family Self 1965 [address] [place] [address] [facility] CHOICE PLUS Advance Directives For more information, please contact: [phone] * Full Code (Latest Code Status on File) Date Activated Date Inactivated Comments 03/02/2020 9:45 AM 03/06/2020 9:00 PM Care Teams Disaster Recovery Manager Relationship Specialty [place] [address] [address] [facility] [address] [place] [address] PCP - General Internal Medicine 05/11/22 [place] [address] [address] [facility] [address] [place] [address] Consulting Physician Endocrinology Diabetes & Metabolism 03/06/20 [place] [address] [address] [facility] [address] [address] Referring Physician Obstetrics and Gynecology 12/08/20
--- OUTSIDE RECORDS SUMMARY | 2024-09-26 08:23 | XMS_ITS | Referral Summary ---
Demographics Address [address] [place] [address] Mobile Phone Home Phone Work Phone Email Address Preferred Language Bulgarian Marital Status Jain Affiliation Unknown Race Black or Karlee rican Ethnic Group Not or Lati no Author Organization [facility] Address [address] [place] [address] Care Team Providers Care Mold Washer Name Role Phone Ninoska Walker MD Unavailable Kendall Salinas MD Unavailable [phone] Modesto Freed MD Primary Care Provider + [...] 03/13/2021 Assessment & Plan (03/13/2021 4:49 PM POWER AND RECOVERY SUPERINTENDENT): Last week was her 2nd ER visit [...] 11/11/2017 Assessment & Plan (03/13/2021 4:47 PM POWER AND RECOVERY SUPERINTENDENT): Hypertension is improving with treatment. Continue current [...] 11/11/2017 Assessment & Plan (03/13/2021 4:47 PM POWER AND RECOVERY SUPERINTENDENT): Has been more adherent to her statin [...] 11/11/2017 Assessment & Plan (03/13/2021 4:47 PM POWER AND RECOVERY SUPERINTENDENT): -Body mass index is 34.09 kg/m . [...] UNCNTR Assessment & Plan (03/13/2021 4:48 PM POWER AND RECOVERY SUPERINTENDENT): Lab Results Component Value Date HGBA1C 8.6 [...] metformin 1000 mg ER daily. Recommended sending CareSimply message with blood sugar log in 1 [...] on file Legal Sex Female 10:31 AM POWER AND RECOVERY SUPERINTENDENT Gender Identity Not on file Sexual Orientation Not on file Last Filed Vital Signs Vital Sign Reading Time Taken Comments Blood Pressure 122/66 03/13/2021 9:32 AM POWER AND RECOVERY SUPERINTENDENT Pulse 82 03/13/2021 9:32 AM POWER AND RECOVERY SUPERINTENDENT Temperature 36.7 C (98.1 F) 03/13/2021 9:32 AM POWER AND RECOVERY SUPERINTENDENT Respiratory Rate 14 03/08/2021 4:57 AM POWER AND RECOVERY SUPERINTENDENT Oxygen Saturation 96% 03/08/2021 4:30 AM POWER AND RECOVERY SUPERINTENDENT Inhaled Oxygen Concentration - - Weight 104.4 kg (230 lb 3.2 oz) 03/13/2021 9:32 AM POWER AND RECOVERY SUPERINTENDENT Height 175 cm (5' 8.9) 03/13/2021 9:32 AM POWER AND RECOVERY SUPERINTENDENT Body Mass Index 34.09 03/13/2021 9:32 AM POWER AND RECOVERY SUPERINTENDENT Plan of Treatment Not on file Procedures [...] CREATININE RATIO, URINE Routine 04/29/2020 8:37 AM POWER AND RECOVERY SUPERINTENDENT SCREENING MAMMOGRAM BILATERAL W MARCO A Schedule [...] 03/08/2021 1:49 AM CDT 03/08/2021 2:36 AM POWER AND RECOVERY SUPERINTENDENT us Luiz Cabrera MD LAB BLOOD ORDERABLES Final Result ARIA HUGO [address] [address] Department [place] [address] * (ABNORMAL) Hemoglobin A1c (02/16/2021 [...] and children were not included. (Diabetes Care 31:3265-1980, 2008). The eAG is not equivalent to a fasting glucose. Blood 02/16/2021 9:51 AM CDT 02/16/2021 12:14 PM CDT us Antonino Mandujano MD LAB BLOOD ORDERABLES Final Res ult ARIA HUGO [address] [place] [address] * Lipid panel (12/08/2020 9:09 AM CDT) [...] CDT 12/08/2020 12:11 PM CDT Yesenia Peters GIS PROFESSOR LAB BLOOD ORDERABLES Final R esult Performing Organization Address City/[facility]/ZIP Co de Phone Number SHANTEGISELA HUGO [address] [address] [place] [address] * Hepatitis C antibody (08/29/2020 11:52 AM [...] CDT 08/29/2020 5:05 PM CDT Yesenia Peters GIS PROFESSOR LAB MICROBIOLOGY - GENERAL O RDERABLES Final Result Performing Organization Address City/[facility]/ZIP Co de Phone Number ARIA HUGO [address] [address] [place] [address] * DIABETES EYE EXAM (06/30/2020) SCRIBED DIABETIC DILATED EYE EXAM Normal Comment:pt reported Historical Provider HEALTH MAINTENANCE Final Result * Albumin Creatinine Ratio, Urine (04/29/2020 8:37 AM POWER AND RECOVERY SUPERINTENDENT) Albumin Ur <12.0 mg/L ARIA Comment: Interpretive Data No reference range established. Current interpretive data was last revised 2018. Creatinine Ur 99.3 mg/dL ARIA Comment: Interpretive Data No reference range established. Current interpretive data was last revised 2018. Albumin Creatinine Ratio, Ur <12 1 - 29 mg/g ARIA Urine 04/29/2020 8:37 AM POWER AND RECOVERY SUPERINTENDENT 04/29/2020 8:38 AM POWER AND RECOVERY SUPERINTENDENT Antonino Mandujano MD LAB URINE ORDERABLES Final Res ult ARIA HUGO [address] Department [place] [address] * Screening Mammogram Bilateral W Marco A [...] Overall Assessment: 2 - Benign Harsh Estes GIS PROFESSOR IMG MAMMO PROCEDURE S Final Result * PAP SMEAR WITH HPV (08/30/2017) Pap smear Normal Historical Provider HEALTH MAINTENANCE Final Result * COLONOSCOPY (06/30/2013) Colonoscopy Normal Historical Provider HEALTH MAINTENANCE Final Result from Last 3 Months or Most Recently Relevant to Health Maintenance [facility] PL[facility] 05/[address] CHOICE PLUS 05/[address] CHOICE PLUS Advance Directives For more information, please contact: [phone] * Full Code (Latest Code Status on File) Date Activated Date Inactivated Comments 03/02/2020 9:45 AM 03/06/2020 9:00 PM Care Teams Mold Washer Relationship Specialty [place] [id number] [address] PCP - General Internal Medicine 05/11/22 [place] [address] [address] [facility] [address] [place] [address] Consulting Physician Endocrinology Diabetes & Metabolism 03/06/20 [place] [address] [address] [facility] [address] [place] [address] Referring Physician Obstetrics and Gynecology 12/08/20
--- OUTSIDE RECORDS SUMMARY | 2024-09-26 08:23 | XMS_ITS | Clinical Summary ---
Demographics Address [address] [place] [address] Home Phone Work Phone Preferred Language Eritrean Marital Status Nondenominational Affiliation Unknown Race Black or Karlee rican Ethnic Group Not or Lati no Author Organization [facility] Address [address] [place] [address] Care Team Providers Care Civil Technician Name Role Phone Radha Davila MD Primary Care Provider [phone] Source Comments [employer] [facility],non-owned Affiliates and Associated Physician Practices is amultiple site organization consisting of ambulatory clinics and hospital sitesin [place], [place], [place] and [place]. This disclosure is being madepursuant to the Care Everywhere program and may not contain all information available regarding this patient. Last updated 18.[employer] [facility] Allergies No known active allergies Medications * [...] on file Legal Sex Female 5:12 AM GOPHERMAN Gender Identity Not on file Sexual Orientation Not on file Last Filed Vital Signs Vital Sign Reading Time Taken Comments Blood Pressure 135/63 04/13/2016 4:15 PM GOPHERMAN Pulse 87 04/13/2016 4:20 PM GOPHERMAN Temperature 36.1 C (97 F) 04/13/2016 4:03 PM GOPHERMAN Respiratory Rate 14 04/13/2016 4:15 PM GOPHERMAN Oxygen Saturation 96% 04/13/2016 4:20 PM GOPHERMAN Inhaled Oxygen Concentration - - Weight 114.6 kg (252 lb 9.6 oz) 04/13/2016 2:49 PM GOPHERMAN Height 165.1 cm (5' 5) 04/13/2016 2:49 PM GOPHERMAN Body Mass Index 42.03 04/13/2016 2:49 PM GOPHERMAN Plan of Treatment Health Maintenance Due Date [...] of Phone Billing Address Personal/Family Self 1965 [address] [place] [address] [facility] Care Teams Civil Technician Relationship Specialty Start Date End Date Radha Davila MD PCP - General Internal Medicine 04/07/16
--- OUTSIDE RECORDS SUMMARY | 2024-09-26 08:23 | XMS_ITS | Clinical Summary ---
Demographics Address [address] [place] [address] Home Phone Mobile Phone Email Address Preferred Language Unknown Marital Status Unknown Alevism Affiliation Unknown Race Unknown Ethnic Group Unknown Author Organization [facility] Address [address] [place] [address] Care Team Providers Care Pencil Maker Name Role Phone Unavailable Primary Care Provider Unavailabl e Social History Tobacco Use Types Packs/Day Years Used Date Smoking Tobacco: Never Assessed Comments Unknown Sex and Gender Information Value Date Recorded Sex Assigned at Not on file Legal Sex Female 12:10 PM METAL FURNITURE ASSEMBLER Gender Identity Not on file Sexual Orientation [...]
--- NOTE | 2024-09-26 08:47 | EST_ITS ---
Patient Info Name: Brook Hawkins Age: 59 years : 1965 Gender: Female Ht: 65 in Wt: 240 lbs BSA: 2.29 m2 HR: 73 bpm BP: 152 / 87 mmHg Exam Date: 09/26/2024 8:47 AM Patient Status: O Admit Date: 09/26/2024 Exam Type: CA stress test treadmill w NM A nuclear stress test was performed. Staff Referring Physician: Danielle Reddy Attending Provider: Danielle Reddy Exercise Technologist: Rachel Jeronimo Exercise Physician: Kobi Arcos DO Summary 1. 1. Negative Chad exercise stress for ischemic ST changes by ECG criteria. 2. 2. Poor functional capacity, achieving 4.7 METs of workload. 3. 3. Hypertensive response to exercise. 4. 4. Appropriate HR response to exercise. 5. 5. Appropriate HR recovery at 1 minute post exercise. 6. 6. Nuclear scan to follow and will be reported separately. Please correlate with it. 7. 7. Patient informed of the above results. Protocol: Chad Stress ECG Details Stage: REST Duration (min): 0 min : 49 sec Speed (mph): 0.0 Grade (%): 0 HR (bpm): 69 SBP (mmHg): 152 DBP (mmHg): 87 METS: --- Stage: REST Duration (min): 4 min : 57 sec Speed (mph): 0.0 Grade (%): 0 HR (bpm): 82 SBP (mmHg): 152 DBP (mmHg): 87 METS: --- Stage: STAGE 1 Duration (min): 1 min : 0 sec Speed (mph): 1.7 Grade (%): 10 HR (bpm): 118 SBP (mmHg): 152 DBP (mmHg): 87 METS: --- Stage: STAGE 1 Duration (min): 2 min : 0 sec Speed (mph): 1.7 Grade (%): 10 HR (bpm): 140 SBP (mmHg): 152 DBP (mmHg): 87 METS: --- Stage: STAGE 1 Duration (min): 2 min : 31 sec Speed (mph): 1.7 Grade (%): 10 HR (bpm): 142 SBP (mmHg): 152 DBP (mmHg): 87 METS: --- Stage: RECOVERY Duration (min): 0 min : 29 sec Speed (mph): 0.0 Grade (%): 0 HR (bpm): 139 SBP (mmHg): 152 DBP (mmHg): 87 METS: --- Stage: RECOVERY Duration (min): 1 min : 29 sec Speed (mph): 0.0 Grade (%): 0 HR (bpm): 118 SBP (mmHg): 152 DBP (mmHg): 87 METS: --- Stage: RECOVERY Duration (min): 2 min : 29 sec Speed (mph): 0.0 Grade (%): 0 HR (bpm): 103 SBP (mmHg): 236 DBP (mmHg): 92 METS: --- Stage: RECOVERY Duration (min): 3 min : 29 sec Speed (mph): 0.0 Grade (%): 0 HR (bpm): 94 SBP (mmHg): 243 DBP (mmHg): 74 METS: --- Stage: RECOVERY Duration (min): 4 min : 29 sec Speed (mph): 0.0 Grade (%): 0 HR (bpm): 92 SBP (mmHg): 243 DBP (mmHg): 74 METS: --- Stage: RECOVERY Duration (min): 5 min : 29 sec Speed (mph): 0.0 Grade (%): 0 HR (bpm): 88 SBP (mmHg): 213 DBP (mmHg): 66 METS: --- Stage: RECOVERY Duration (min): 5 min : 34 sec Speed (mph): 0.0 Grade (%): 0 HR (bpm): 88 SBP (mmHg): 213 DBP (mmHg): 66 METS: --- Rest HR: 82 bpm Peak HR: 143 bpm Rest Sys BP: 152 mmHg Peak Sys BP: 243 mmHg Max Pred HR: 159 bpm % Max Pred HR: 90 % Target HR: 135 bpm Max RPP: 34,749 bpm*mmHg Goldman Score: -2 BP Response: Patient exhibited a hypertensive response with stress Termination Reason: Reached target heart rate or workload Cardiac Symptoms: Shortness of breath Max ST Seg Deviation: -0.90 mm Total Time: 2 min : 31 sec Rest Mason BP: 87 mmHg Peak Mason BP: 74 mmHg Angina Score: None Total METS: 4.7 Resting ECG Sinus rhythm, cannot r/o septal infarct, age indeterminate. Stress ECG No ST changes. Arrhythmias None. Report Signatures
== END 2024-09-26 08:18 | disposition home or self-care (01) ==
PROVIDERS: PCP Family Medicine; Visit Provider Family Medicine
DX: R07.9 Chest pain, unspecified (principal)
CPT/HCPCS: 78452; 93017; A9502